=== PATIENT | male | born 1965 | race Caucasian/White ===

== ENCOUNTER 2017-06-02 19:41 | Emergency (ER) | payer MEDICAID ==
[~2017-06-02] VITALS: Ht 180.3 cm; Wt 77.1 kg
[~2017-06-02 19:41] MED LIST: ASPIR 8181 MG PO; ASPIRIN 325MG325 MG PO; BENADRYL ITCH28.3 GM TP; CATAPRES0.2 MG PO; CIPRO 500MG TA500 MG PO; CIPROFLOXACIN500 MG PO; CLINDAMYCIN HC300 MG PO; CLONIDINE HYDR0.1 MG PO; CLONIDINE0.1 MG PO; Chlordiazepoxid25 MG PO; DIAZEPAM10 M1 PO; ECOTRIN81 MG PO; FIORICET1 CAP PO; FLAGYL 500MG.500 MG PO; FLAGYL500 MG PO; HABITROL21 MG/24 H TD; LISINOPRIL 10MG10 MG PO; LISINOPRIL/HCTZ1 TA3 PO; METOPROLOL25 MG PO; TRIAMCINOLON 0.80 G2 TP; VICODIN 5/500 T1 TAB PO
--- NOTE | 2017-06-02 20:14 | Emergency Room Report ---
History of Present Illness Time Seen by 2012 Presenting Problem in Triage Pt arrived:Walked Presenting Problem:PATIENT REPORTS HIS NOSE STARTED BLEEDING AT 0400 THIS MORNING AND IT HASN'T STOPPED. PATIENT HAS A TISSUE PLACED IN RIGHT NARE. 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 N Clinical Suspician of Infection? N Mental Status: 1 - Regular (Normal Baseline) Sepsis Risk:Low Sepsis Risk Have you (or family members/close friends) recently traveled outside the [place]? N If Yes, where/when: Have you had exposure to infectious disease within the past month? TB? Other? Specify: Source patient, RN notes reviewed, old records Exam Limitations no limitations Comment has sinus congestion and dev rt nosebleed which would not resp to otc meds and home care Cardiac Chest Pain Chest pain indicative of cardiac No Timing/Duration this evening Severity moderate ALLERGIES Coded Allergies: iodine (Intermediate, I-RASH 10/09/15) promethazine (From PHENERGAN) (Mild, NA-HALLUCINATIONS 10/09/15) Home Medications Reported Medications LISINOPRIL (Lisinopril) 10 MG PO DAILY Aspirin (Aspirin EC 81MG Tab) 81 MG PO DAILY History Medical History General CAD? No Angina: No VA: No Hypertension? Yes Hyperlipidemia? No CHF? No DVT? No PE? No COPD? No Asthma? No Anemia? No GERD? No Gastric ulcers? No GI Bleed? No Hernia? No Thyroid Problems? No Hypothyroidism? No CVA? Yes Seizures? No Diabetes? No Renal Insuffiency? Yes End Stage Renal Disease? No UTI? No Stones? No BPH? No GB Disease: No Nephritic Syndrome? No Asplenia? No Hepatitis? No Sickle Cell Disease? No Arthritis? No Migraines? No Cataracts? No Glaucoma? No MRSA? No HIV? No TB? No Anxiety? No Depression? No Cancer? No More? Yes Additional hx: ETOH and tobacco abuse - 3 MONTHS AGO Was told he had Stage 3 kidney disease Immunization Hx DT/Tetanus > 10 Years Ago Flu [id number] Pneumonia Refuses Surgical Hx Previous Surgery?N Family History Family Hx Diabetes No CAD No Hypertension Yes Hyperlipidemia Yes Cancer Yes TB No Social History Smoking Hx Smoker: Current Every Day Smoker Tobacco: Yes Type Cigarettes Packs/day 1 1/2 - 2 Packs Alcohol Alcohol: Yes Drugs none Review of Systems All Other Systems Reviewed and Negative Constitutional denies fever Eyes denies drainage ENT see HPI, epistaxis. denies: ear pain, throat pain. Respiratory denies cough, denies shortness of breath, denies wheezing Cardiovascular denies chest pain, denies palpitations, denies syncope Gastrointestinal denies abdominal pain, denies diarrhea, denies vomiting Genitourinary denies: dysuria, frequency, hesitancy, hematuria. Musculoskeletal denies back pain, denies joint pain, denies joint swelling, denies neck pain Skin denies rash Psychiatric/Neurological denies headache, denies seizure Physical Exam Vital Signs Vital Signs Date Time Temp Pulse Resp B/P Pulse O2 O2 Flow FiO2 Ox Delivery Rate 06/02 2025 98.4 94 20 140/98 99 06/02 2017 20 06/02 2001 134 102/50 06/02 2000 102 121/84 06/02 1959 106 114/75 06/02 1943 98.4 73 20 136/99 99 - WBC >12,000 or <4,000 or 10% bands? 2 or more SIRS Criteria Met? B/P:118/64 MAP:111 Creatinine >2.0? UA output<0.5ml/kg/hr for 2 hrs? Platelet count >100,000? Lactate >2.0mmol/1? INR >1.2 or PTT > than 60 sec? Evidence of Organ Dysfunction? Provider documented clinical suspician of infection? N Sepsis Criteria Count: 1 Sepsis Risk: Low Sepsis Risk General Appearance no apparent distress Eye Exam - bilateral eye PERRL, bilateral eye EOMI Ear, Nose, Throat ozzing rt nares - no septal hematoma Neck non-tender Respiratory Status No: respiratory distress. 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 No Results/Orders Current Medication Orders Sig/Dana Start time Last Medication Dose Route Stop Time Status Admin Acetaminophen/ 1 ANTONINA ONCE ONE 06/02 2045 AC Codeine Phosphate PO 06/02 2046 Cephalexin 500 MG ONCE ONE 06/02 2045 AC Monohydrate PO 06/02 2046 Ketorolac 0 .STK-MED ONE 06/02 2016 DC Tromethamine .ROUTE Cocaine HCl 4 ML ONCE ONE 06/02 2015 DC 08/06 TP 06/02 Ketorolac 30 MG ONCE ONE 06/02 2015 DC 06 Tromethamine IV 06/02 Methylprednisolone 125 MG ONCE ONE 06/02 2015 DC 06/02 Sodium Succinate IV 06/02 Sodium Chloride 1,000 ML .Q1H1M 06/02 2015 AC 08/ IV 06/02 Sodium Chloride 10 ML PRN PRN 06/02 2015 AC IV 06/03 2005 Methylprednisolone 0 .STK-MED ONE 06/02 2012 DC Sodium Succinate .ROUTE Cocaine HCl 0 .STK-MED ONE 06/02 2008 DC .ROUTE Sodium Chloride 1,000 ML .STK-MED ONE 06/02 2004 DC IV Phenylephrine HCl 0.5 ML ONCE ONE 06/02 2000 DC 06/02 NS 06/02 Sodium Chloride 10 ML PRN PRN 06/02 2000 AC 06/02 IV 06/03 Phenylephrine HCl 0 .STK-MED ONE 06/02 1956 DC .ROUTE Orders Procedure Date/time Status ORTHOSTATIC B/P 06/02 1958 Active IV SALINE LOCK 06/02 1956 Active PROTHROMBIN TIME 06/02 1956 Active CBC WITH AUTO DIFF 06/02 1956 Active CHEM 12 PROFILE 06/02 1956 Active Procedures Epistaxis Epistaxis care Type/contributing factors Present: Anterior bleed, Takes ASA. No: Posterior bleed, Uncontrolled HTN, Takes Plavix, Takes Coumadin. Medications used Neosynephrine, Cocaine. Treatment/care Anterior pack placed. Departure Departure Time of Disposition 2036 Disposition DC Home or Self Care(routine) Clinical Impression Primary Impression: Anterior epistaxis Condition STABLE Referrals Abhijit Castro MD Patient Instructions DI for Nosebleed Additional Instructions see dr castro for follow up Discharge Counseling Counseled pt/family regarding diagnosis, test results, medications/RX, follow up needs Prescriptions Current Visit Scripts CEPHALEXIN (Keflex 500MG Capsule) 500 MG PO Q8H #21 CAP ED Critical Care Critical Care No at [id number]
[2017-06-02] MEDS ORDERED: KEFLEX 500MG.500 MG PO (20:43)
[2017-06-02 20:51] LABS: HEMOGLOBIN 13.1 g/dL (14.1-18.0); LYMPH % 24.2 % (10-50)
[2017-06-02 20:57] VITALS: BP 140/98
--- OUTSIDE RECORDS SUMMARY | 2017-06-03 20:18 | External Medical Summary Rpt ---
Author Author , ESVIN MCALLISTER Address Unknown Phone [email or web address] Care Team Providers Care [employer] Access[employer] Estimator Name Role Phone JAYLON ESTEFANIA, JAYLON Unavailable Unavailable ESTEFANIA JAYLON ESTEFANIA, ARNOLD Unavailable Unavailable ESTEFANIA SPICER HARLEY, Unavailable Unavailable SPICER HARLEY [facility] Unavailable Unavailable ADULT & PED, [facility] Unavailable [facility]available [facility], Unavailable Unavailable [facility] Unavailable [place], [facility] Unavailable Unavailable [facility], [facility] JOSEPHINE HENRIK, Unavailable Unavailable JOSEPHINE HENRIK SUZANNE DEBRA, SUZANNE Unavailable Unavailable DEBRA [facility] Un[facility] Un[facility], [facility] Unavailable Unavailable CH[facility]OP[facility]CT, [facility], Unavailable [facility]available [facility], Unavailable Unavailable [facility] BURNS TRA, [facility] TRA Unavailable Unavailable Dar Shields MD, Unavailable Unavailable Dar Shields MD [facility] Unavailable Unavailable [facility], [facility] KHAWARI MAR, KHAWARI Unavailable Unavailable MAR KOSTELIC PETERSON, Unavailable Unavailable KOSTELIC [facility]ERSON [facility] Un[facility], [facility] Unavailable Unavailable [facility], [facility] Unavailable Unavailable [facility], [facility] Unavailable [facility], [facility] Ludmila Yeung MD, Unavailable Unavailable Ludmila BRAMBILA, Unavailable Unavailable DEEPAK BRAMBILA, Unavailable Unavailable DEEPAK BRAMBILA [facility], Unavailable Unavailable [facility], Unavailable Unavailable [facility], Unavailable Unavailable PLL[facility], [facility] CLEMENTS, CLEMENTS Unavailable Unavailable CLEMENTS, [facility] Unavailable Unavailable [facility], [facility] Unavailable Unavailable [facility], [facility] Unavailable Unavailable CHANDA TOD, CHANDA TOD Unavailable Unavailable ROSS SAAD, Unavailable Unavailable ROSS SAAD SADEK MOH, SADEK MOH Unavailable Unavailable MONTAÑO, MONTAÑO Unavailable Unavailable MONTAÑO, MONTAÑO Unavailable Unavailable MON[facility]ÑO BABS, [facility] Unavailable Unavailable DAYANA SALAMANCA, DAYANA Unavailable Unavailable [facility], Unavailable Unavailable [facility] Purpose Continuity of Care Document - 08-01-2013 through 2016 Problems Code Diagnosis DOS Provider Status [id number] 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-13-2017 [facility] 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 [id number] CHRONIC 01-22-2017 [facility] MIGRAINE W/O AURA NOT INTRACT W/O SM R1030 LOWER 11-12-2016 [facility] ABDOMINAL PAIN UNSPECIFIED R3919 OTHER 07-09-2016 [facility] WITH INC MICTURITION M5032 OTH CERV 11-03-2015 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 N MID-CERVICA L REGION M5117 INTERVERTEB 11-03-2015 [facility] 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 LS RGN M9901 SEGMENTAL & 11-03-2015 [facility] SOMATIC FAMILY DYSFUNCTION CHIROPRACT CERVICAL REGION M9902 SEGMENTAL & 11-03-2015 [facility] SOMATIC FAMILY DYSFUNCTION [facility] THORACIC REGION M9903 SEGMENTAL & 11-03-2015 [facility] SOMATIC FAMILY DYSFUNCTION CHIROPRACT OF LUMBAR REGION M9904 SEGMENTAL & 11-03-2015 [facility] SOMATIC FAMILY DYSFUNCTION CHIROPRACT OF SACRAL REGION M9985 OTHER 11-03-2015 [facility] BIOMECHANIC FAMILY AL LESIONS CHIROPRACT OF PELVIC REGION L309 DERMATITIS 10-17-2015 [facility] PAD UNSPECIFIED [id number] CUTANEOUS 10-10-2015 [facility] ABSCESS OF PHYSICIANS LEFT UPPER GROUP LIMB B86 SCABIES 10-09-2015 [facility] B45597 CUTANEOUS 10-09-2015 [facility] ABSCESS OF PHYSICIANS, LEFT LOWER PLLC LIMB [id number] CELLULITIS 10-09-2015 [facility] OF LEFT PHYSICIANS, UPPER LIMB PLLC [id number] CELLULITIS 10-09-2015 [facility] OF LEFT PHYSICIANS, LOWER LIMB PLLC 5982 POSTOPERATI 06-01-2015 [facility] 09688 INCOMPLETE 06-01-2015 [facility] BLADDER [place] [facility] 58088 URETHRAL 05-04-2015 [facility] STRICTURE [place] DUE TO ADULT & PED UNSPECIFIED INFECTION 73957 OTHER 05-04-2015 [facility] SPECIFIED [place] DISORDER OF ADULT & PED PENIS 99661 NOCTURIA 04-27-2015 [facility] [place] [facility] 79913 CHRONIC 04-07-2015 [facility] MIGRAINE NEUROLOGY W/O AURA W/O INTRACTABLE W/O SM 7242 LUMBAGO 04-07-2015 [facility] 16681 MEMORY LOSS 04-07-2015 [facility] 7840 HEADACHE 03-24-2015 [facility] 2689 UNSPECIFIED 02-18-2015 [facility] V5869 LONG-TERM 12-27-2014 [facility] USE OF [place] OTHER MEDICATIONS 4619 ACUTE 11-26-2014 JAYLON MAC SINUSITIS, UNSPECIFIED 4660 ACUTE 11-26-2014 ARNORI ESTEFANIA BRONCHITIS 36460 DEGEN 08-19-2014 [facility] LUMBAR/LUMB ORTHOPAEDIC OSACRAL S PLC INTERVERTEB RAL DISC 64671 SPINAL STEN 07-15-2014 [facility] LUMB REG ORTHOPAEDIC W/O S PLC NEUROGENIC CLAUDICATIO N 7213 LUMBOSACRAL 06-25-2014 [facility] WITHOUT MYELOPATHY 41601 DISPLCMT 06-25-2014 [place] LUMBAR MEDICAL INTERVERT IMAGING ASS DISC W/O MYELOPATHY 3384 CHRONIC 06-21-2014 JAYLON MAC PAIN SYNDROME 17137 OSTEOARTHRO 06-21-2014 JAYLON MAC S INVLV MX SITES BUT NOT SPEC GEN 64428 HTN CKD UNS 06-09-2014 [facility] STAGE I THRU STAGE IV/UNS 01051 DIVERTICULO 06-09-2014 [facility] COLON 5853 CHRONIC 06-09-2014 [facility] DISEASE STAGE III (MODERATE) 26695 CONTRACTURE 06-09-2014 [facility] 58939 CALCANEAL 06-09-2014 [facility] 7286 CONTRACTURE 06-09-2014 [facility] FASCIA 3670 HYPERMETROP 05-20-2014 [facility]EE[facility]K PAREDES GRE 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 [place] [facility]IS FOOT [facility] ANKLE CE 7224 DEGENERATIO 05-14-2014 [facility] N 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 80814 PLANTAR 05-14-2014 [place] FASCIAL FOOT & FIBROMATOSI ANKLE CE S 7295 PAIN IN 05-14-2014 [place] SOFT FOOT & TISSUES OF ANKLE CE LIMB 7391 NONALLOPATH 05-14-2014 [facility] IC LESION FAMILY OF CERVICAL CHIROPRACT REGION NEC 7392 NONALLOPATH 05-14-2014 [facility] IC LESION FAMILY OF THORACIC CHIROPRACT REGION NEC 7393 NONALLOPATH 05-14-2014 [facility] IC LESION FAMILY OF LUMBAR CHIROPRACT REGION NEC 7394 NONALLOPATH 05-14-2014 [facility] IC LESION FAMILY OF SACRAL CHIROPRACT REGION NEC V0179 CONTACT OR 05-11-2014 LAB [facility] EXPOSURE TO BHARATI OTHER HOLDINGS VIRAL DISEASES 4011 ESSENTIAL 04-08-2014 JAYLON MAC HYPERTENS N, BENIGN 7245 UNSPECIFIED 04-08-2014 JAYLON MAC BACKACHE 18756 UNSPECIFIED 04-08-2014 JAYLON MAC GANGLION 305.1 305.1 11-09-2013 Glennie TOBACCO USE [facility] 401.9 401.9 11-09-2013 Glennie HYPERTENSIO [facility] [address] OTHER 11-09-2013 [place] DISEASES OF MEDICAL LUNG NOT IMAGING ASS ELSEWHERE CLASSIFIED 562.11 562.11 11-09-2013 Glennie DIVERTICULI [facility] (W/O MENT OF HEMORRHAGE) 7862 COUGH 11-09-2013 [facility] 300.00 300.00 08-04-2013 Glennie ANXIETY [facility] 724.2 724.2 08-04-2013 Glennie LUMBAGO [facility] R04.0 EPISTAXIS Allergies, Adverse Reactions, Alerts Type Drug Allergy Adverse Reaction to Substance Substance Reaction Severity Promethazine NA-HALLUCINATIONS Mild Iodine Unknown Unknown Medications Na ND Rx Da Fi Fi Am Da Di Ph RX Ph St me C No te ll ll ou ys ag ar # ys at rm s nt no ma ic us Or Da si cy ia de te s n re d BU 51 03 04 30 8 00 WA Ac TA 86 -2 -2 .0 00 L- ti LB 20 8- 1- 00 04 MA ve -A 54 20 20 54 RT CE 00 17 17 22 TA 1 96 PH MD AR N- MA CA CY FF #5 50 71 -3 25 -4 0 SO 00 01 0 No DI 40 -1 UM 97 3- Lo 98 20 ng CH 30 14 er LO 9 RI Ac DE ti ve 0. 9% SO CRISTINA TI ON ON 00 01 0 No DA 64 -1 NS 16 3- Lo ET 08 20 ng RO 02 14 er N 5 HC Ac L ti 4 ve MG /2 ML AL Sa 63 01 0 No li 80 -1 ne 70 3- Lo 10 20 ng Fl 07 14 er us 5 h Ac 10 ti ML ve Sy ri ng e Mo 00 01 0 No rp 40 -1 hi 91 3- Lo ne 25 20 ng 83 14 er 4M 0 G/ Ac Ml ti ve Sy ri ng e Le 00 01 0 No vo 90 -1 fl 46 3- Lo ox 25 20 ng ac 06 14 er in 1 Ac 50 ti 0M ve G Ta bl et KE 00 01 0 No TO 40 -1 RO 93 3- Lo LA 79 20 ng C 50 14 er 30 1 Ac MG ti /M ve L AL AC 51 01 0 No ET 07 -1 AM 90 3- Lo IN 16 20 ng OP 19 14 er HE 9H N Ac W/ ti CO ve DE IN E #3 TA K ME 00 01 0 No TR 40 -1 ON 97 3- Lo ID 81 20 ng AZ 12 14 er OL 4 E Ac 50 ti 0 ve MG /1 00 ML NI 00 10 2 No CO 06 -0 TI 75 6- Lo NE 12 20 ng 61 13 er 21 4 Ac MG ti /2 ve 4H R PA TC H CL 51 10 2 No ON 07 -0 ID 90 6- Lo IN 30 20 ng E 02 13 er HC 0 L Ac 0. ti 2 ve MG TA BL ET KE 00 10 2 No TO 40 -0 RO 93 6- Lo LA 79 20 ng C 50 13 er 30 1 Ac MG ti /M ve L AL DI 51 10 2 No AZ 07 -0 EP 90 6- Lo AM 28 20 ng 62 13 er 10 0 Ac MG ti ve TA BL ET IN 00 10 2 No VA 00 -0 NZ 63 6- Lo 1 84 20 ng 57 13 er GM 1 Ac AD ti D- ve VA NT AG E AL SO 00 10 2 No DI 40 -0 UM 97 6- Lo 10 20 ng CH 16 13 er LO 6 RI Ac DE ti ve 0. 9% SO LN IN 00 10 0 No VA 00 -0 NZ 63 5- Lo 1 84 20 ng 57 13 er GM 1 Ac AD ti D- ve VA NT AG E AL SO 00 10 0 No DI 40 -0 UM 97 5- Lo 10 20 ng CH 16 13 er LO 6 RI Ac DE ti ve 0. 9% SO LN Sa 63 10 3 No li 80 -0 ne 70 5- Lo 10 20 ng Fl 07 13 er us 5 h Ac 10 ti ML ve Sy ri ng e ON 00 10 0 No DA 64 -0 NS 16 5- Lo ET 08 20 ng RO 02 13 er N 5 HC Ac L ti 4 ve MG /2 ML AL Mo 00 10 0 No rp 40 -0 hi 91 5- Lo ne 25 20 ng 83 13 er 4M 0 G/ Ac Ml ti ve Sy ri ng e Mo 00 10 3 No rp 40 -0 hi 91 5- Lo ne 25 20 ng 83 13 er 4M 0 G/ Ac Ml ti ve Sy ri ng e Vital Signs 11-09-2013 22:45 Name Value Interpretat Reference Comment ion Range BP 72 mm[Hg] Diastolic BP Systolic 126 mm[Hg] Heart 76 /min Rate/Pulse O2% 95 % Respiratory 16 /min Rate 11-09-2013 19:15 Name Value Interpretat Reference Comment ion Range Body 98 [degF] Temperature BP 99 mm[Hg] Diastolic BP Systolic 159 mm[Hg] Heart 50 /min Rate/Pulse O2% 100 % Respiratory 21 /min Rate 08-04-2013 11:45 Name Value Interpretat Reference Comment ion Range Body 98.7 [degF] Temperature BP 93 mm[Hg] Diastolic BP Systolic 148 mm[Hg] Heart 75 /min Rate/Pulse Respiratory 20 /min Rate 08-04-2013 08:05 Name Value Interpretat Reference Comment ion Range O2% 94 % 08-01-2013 22:30 Name Value Interpretat Reference Comment ion Range Height 180.34 cm Weight 96.730 kg Measured 08-01-2013 19:22 Name Value Interpretat Reference Comment ion Range Body 98.0 [degF] Temperature BP 87 mm[Hg] Diastolic BP Systolic 132 mm[Hg] Heart 81 /min Rate/Pulse O2% 96 % Respiratory 19 /min Rate Weight 0 [oz_av] Measured Results Labs Lab Lab Date Result Refere Interp Status Commen Order Detail nces retati t Range on COMPREHENSIVE METABOLIC PANEL (11-09-2013 19:15) Glucose 154 74-106 complet 014 mg/dL ed Bld-mCn 19:15 c BUN 15 7-18 complet Bld-mCn 014 mg/dL ed c 19:15 Creat 0.9 0.8-1.3 complet SerPl-m 014 mg/dL ed Cnc 19:15 Creat 151 50-200 complet Cl 014 ML/MIN ed predict 19:15 ed SerPl C-G-vRa te GFR/BSA 91 Greater complet .pred 014 ML/MIN than ed SerPl 19:15 60 Schwart z-vRate Sodium 138 136-145 complet SerPl-s 014 mmoL/L ed Cnc 19:15 Potassi 3.8 3.5-5.1 complet um 014 mmoL/L ed SerPl-s 19:15 Cnc Chlorid 100 98-107 complet e 014 mmoL/L ed SerPl-s 19:15 Cnc CO2 30 21.0-32 complet SerPl-s 014 mmoL/L .0 ed Cnc 19:15 Calcium 8.7 8.5-10. complet 014 mg/dL 1 ed SerPl-m 19:15 Cnc Prot 7.9 6.4-8.2 complet SerPl-m 014 gm/dL ed Cnc 19:15 Albumin 4.0 3.4-5.0 complet 014 gm/dL ed SerPl-m 19:15 Cnc Globuli 3.9 1.3-3.2 complet n 014 gm/dL ed Ser-mCn 19:15 c Albumin 1.0 UNK 1.1-1.8 complet /Glob 014 ed SerPl-m 19:15 Rto Bilirub 0.4 0.2-1.0 complet 014 mg/dL ed SerPl-m 19:15 Cnc AST 21 U/L 15-37 complet SerPl-c 014 ed Cnc 19:15 ALT 39 U/L 30-65 complet SerPl-c 014 ed Cnc 19:15 ALP 104 U/L 50-136 complet SerPl-c 014 ed Cnc 19:15 Amylase SerPl-cCnc (11-09-2013 19:15) Amylase 49 U/L 25-115 complet 014 ed SerPl-c 19:15 Cnc LIPASE (11-09-2013 19:15) LIPASE 120 U/L 73-393 complet 014 ed 19:15 CBC with AUTO DIFF (11-09-2013 19:15) WBC # 11-09- 6.2 4.8-10. complet Bld 014 K/MM3 8 ed Auto 19:15 RBC # 11-09- 5.22 4.6-6.2 complet Bld 014 M/mm3 ed Auto 19:15 Hgb 15.5 14.1-18 complet Bld-mCn 014 g/dL .0 ed c 19:15 Hct Fr 45.5 % 42.0-52 complet Bld 014 .0 ed 19:15 MCV RBC 87.1 fl 82.2-97 complet 014 .8 ed 19:15 MCH RBC 29.6 pg 27-31.2 complet Qn 014 ed Auto 19:15 MEAN 34.0 31.8-35 complet CORPUSC 014 g/dl .4 ed ULAR 19:15 HGB CONC RDW RBC 15.9 % 11.5-17 complet Auto 014 .5 ed 19:15 Platele 229 142-424 complet t Bld 014 K/mm3 ed Ql 19:15 Manual MEAN 8.8 fl 7.4-10. complet PLATELE 014 4 ed T 19:15 VOLUME Granulo 78.7 % 37.0-80 complet cytes 014 .0 ed Fr Bld 19:15 Auto LYMPH % 16.5 % 10-50 complet 014 ed 19:15 Monocyt 4.5 % 1.7-9.3 complet es Fr 014 ed Bld 19:15 Auto Eosinop 0.1 % 0.1-12. complet hil Fr 014 0 ed Bld 19:15 Auto Basophi 0.1 % 0.1-2.0 complet ls Fr 014 ed Bld 19:15 Auto Granulo 01-13-2 4.8 1.3-8.0 complet cytes # 014 K/mm3 ed Bld 19:15 Auto Lymphoc 1.0 0.7-4.5 complet ytes Fr 014 K/mm3 ed Bld 19:15 Auto Monocyt 2 0.3 0.1-1.0 complet es # 014 K/mm3 ed Bld 19:15 Auto Eosinop 0.0 0.0-0.4 complet hil # 014 K/mm3 ed Bld 19:15 Auto Basophi 0.0 0-0.2 complet ls # 014 K/MM3 ed Bld 19:15 Auto BASIC METABOLIC PANEL (08-03-2013 06:21) Glucose 94 74-106 complet 013 mg/dL ed Bld-mCn 06:21 c BUN 8 mg/dL 7-18 complet Bld-mCn 013 ed c 06:21 Creat 1.0 0.8-1.3 complet SerPl-m 013 mg/dL ed Cnc 06:21 ESTIMAT 128 50-200 complet ED 013 ML/MIN ed CREATIN 06:21 INE CLEARAN CE GFR 81 Greater complet (ESTIMA 013 ML/MIN than ed STUART) 06:21 60 Sodium 138 136-145 complet SerPl-s 013 mmoL/L ed Cnc 06:21 Potassi 4.0 3.5-5.1 complet um 013 mmoL/L ed SerPl-s 06:21 Cnc Chlorid 104 98-107 complet e 013 mmoL/L ed SerPl-s 06:21 Cnc CO2 24 21.0-32 complet SerPl-s 013 mmoL/L .0 ed Cnc 06:21 Calcium 7.4 8.5-10. complet 013 mg/dL 1 ed SerPl-m 06:21 Cnc CBC with AUTO DIFF (08-03-2013 06:21) WBC # -07-2 11.8 4.8-10. complet Bld 013 K/MM3 8 ed Auto 06:21 RBC # 07-2 4.24 4.6-6.2 complet Bld 013 M/mm3 ed Auto 06:21 Hgb 10-07-2 12.9 14.1-18 complet Bld-mCn 013 g/dL .0 ed c 06:21 Hct Fr 41.5 % 42.0-52 complet Bld 013 .0 ed 06:21 MCV RBC 97.8 fl 82.2-97 complet 013 .8 ed 06:21 MCH RBC 30.3 pg 27-31.2 complet Qn 013 ed Auto 06:21 MEAN 31.0 31.8-35 complet CORPUSC 013 g/dl .4 ed ULAR 06:21 HGB CONC RDW RBC 14.2 % 11.5-17 complet Auto 013 .5 ed 06:21 Platele 177 142-424 complet t Bld 013 K/mm3 ed Ql 06:21 Manual MEAN 9.4 fl 7.4-10. complet PLATELE 013 4 ed T 06:21 VOLUME Granulo 08-03-2 86.0 % 37.0-80 complet cytes 013 .0 ed Fr Bld 06:21 Auto LYMPH % 07-2 9.1 % 10-50 complet 013 ed 06:21 Monocyt 07-2 4.4 % 1.7-9.3 complet es Fr 013 ed Bld 06:21 Auto Eosinop 07-2 0.3 % 0.1-12. complet hil Fr 013 0 ed Bld 06:21 Auto Basophi -07-2 0.1 % 0.1-2.0 complet ls Fr 013 ed Bld 06:21 Auto Granulo -07-2 10.2 1.3-8.0 complet cytes # 013 K/mm3 ed Bld 06:21 Auto Lymphoc 10-07-2 1.1 0.7-4.5 complet ytes Fr 013 K/mm3 ed Bld 06:21 Auto Monocyt 10-07-2 0.5 0.1-1.0 complet es # 013 K/mm3 ed Bld 06:21 Auto Eosinop 10-07-2 0.0 0.0-0.4 complet hil # 013 K/mm3 ed Bld 06:21 Auto Basophi 07-2 0.0 0-0.2 complet ls # 013 K/MM3 ed Bld 06:21 Auto BASIC METABOLIC PANEL (08-02-2013 06:15) Glucose 108 74-106 complet 013 mg/dL ed Bld-mCn 06:15 c BUN 11 7-18 complet Bld-mCn 013 mg/dL ed c 06:15 Creat 1.2 0.8-1.3 complet SerPl-m 013 mg/dL ed Cnc 06:15 ESTIMAT 106 50-200 complet ED 013 ML/MIN ed CREATIN 06:15 INE CLEARAN CE GFR 65 Greater complet (ESTIMA 013 ML/MIN than ed STUART) 06:15 60 Sodium 138 136-145 complet SerPl-s 013 mmoL/L ed Cnc 06:15 Potassi 4.5 3.5-5.1 complet um 013 mmoL/L ed SerPl-s 06:15 Cnc Chlorid 104 98-107 complet e 013 mmoL/L ed SerPl-s 06:15 Cnc CO2 28 21.0-32 complet SerPl-s 013 mmoL/L .0 ed Cnc 06:15 Calcium 7.4 8.5-10. complet 013 mg/dL 1 ed SerPl-m 06:15 Cnc CBC with AUTO DIFF (08-02-2013 06:15) WBC # 08-02- 12.7 4.8-10. complet Bld 013 K/MM3 8 ed Auto 06:15 RBC # 08-02-2 4.37 4.6-6.2 complet Bld 013 M/mm3 ed Auto 06:15 Hgb 13.6 14.1-18 complet Bld-mCn 013 g/dL .0 ed c 06:15 Hct Fr 41.9 % 42.0-52 complet Bld 013 .0 ed 06:15 MCV RBC 96.0 fl 82.2-97 complet 013 .8 ed 06:15 MCH RBC 31.2 pg 27-31.2 complet Qn 013 ed Auto 06:15 MEAN 32.5 31.8-35 complet CORPUSC 013 g/dl .4 ed ULAR 06:15 HGB CONC RDW RBC 08-02-2 14.7 % 11.5-17 complet Auto 013 .5 ed 06:15 Platele 10-2 212 142-424 complet t Bld 013 K/mm3 ed Ql 06:15 Manual MEAN 06-2 9.1 fl 7.4-10. complet PLATELE 013 4 ed T 06:15 VOLUME Granulo 08-02-2 83.1 % 37.0-80 complet cytes 013 .0 ed Fr Bld 06:15 Auto LYMPH % 08-02-2 12.0 % 10-50 complet 013 ed 06:15 Monocyt 08-02-2 4.7 % 1.7-9.3 complet es Fr 013 ed Bld 06:15 Auto Eosinop 06-2 0.1 % 0.1-12. complet hil Fr 013 0 ed Bld 06:15 Auto Basophi 08-02-2 0.1 % 0.1-2.0 complet ls Fr 013 ed Bld 06:15 Auto Granulo 2 10.6 1.3-8.0 complet cytes # 013 K/mm3 ed Bld 06:15 Auto Lymphoc 08-02-2 1.5 0.7-4.5 complet ytes Fr 013 K/mm3 ed Bld 06:15 Auto Monocyt 06-2 0.6 0.1-1.0 complet es # 013 K/mm3 ed Bld 06:15 Auto Eosinop 06-2 0.0 0.0-0.4 complet hil # 013 K/mm3 ed Bld 06:15 Auto Basophi 06-2 0.0 0-0.2 complet ls # 013 K/MM3 ed Bld 06:15 Auto URINALYSIS/COMPLETE (08-01-2013 22:10) URINE 08-01- YELLOW YELLOW complet COLOR 013 ed 22:10 URINE CLEAR CLEAR complet APPEARA 013 ed NCE 22:10 URINE NEGATIV NEG complet GLUCOSE 013 E ed - 22:10 DIPSTIC K URINE NEGATIV NEG complet BILIRUB 013 E ed IN - 22:10 DIPSTIC K URINE 2+ NEG complet KETONE 013 mg/dL ed 22:10 URINE 08-01-2 1.025 1.005-1 complet SPECIFI 013 UNK .030 ed C 22:10 GRAVITY URINE TRACE-I NEG complet BLOOD 013 NTACT ed 22:10 URINE 5.5 UNK 5.0-8.5 complet PH 013 ed 22:10 URINE NEGATIV NEG complet PROTEIN 013 E mg/dL ed - 22:10 DIPSTIC K URINE 0.2 NEG complet UROBILI 013 E.U./dL ed NOGEN - 22:10 DIPSTIC K URINE NEGATIV NEG complet NITRATE 013 E ed - 22:10 DIPSTIC K URINE NEGATIV NEG complet LEUK 013 E ed ESTERAS 22:10 E URINE 3-5 0 complet RBC 013 rbc/hpf ed 22:10 URINE 3-5 O complet WBC 013 wbc/hpf ed 22:10 URINE OCC OCC complet SQUAMOU 013 #/hpf ed S CELLS 22:10 URINE 3-5 NONE complet HYALINE 013 #/lpf ed CAST 22:10 URINE 1+ NONE complet MUCUS 013 ed 22:10 COMPREHENSIVE METABOLIC PANEL (08-01-2013 19:40) Glucose 122 74-106 complet 013 mg/dL ed Bld-mCn 19:40 c BUN 16 7-18 complet Bld-mCn 013 mg/dL ed c 19:40 Creat 1.1 0.8-1.3 complet SerPl-m 013 mg/dL ed Cnc 19:40 ESTIMAT 129 50-200 complet ED 013 ML/MIN ed CREATIN 19:40 INE CLEARAN CE GFR 72 Greater complet (ESTIMA 013 ML/MIN than ed STUART) 19:40 60 Sodium 137 136-145 complet SerPl-s 013 mmoL/L ed Cnc 19:40 Potassi 4.3 3.5-5.1 complet um 013 mmoL/L ed SerPl-s 19:40 Cnc Chlorid 100 98-107 complet e 013 mmoL/L ed SerPl-s 19:40 Cnc CO2 10-05-2 23 21.0-32 complet SerPl-s 013 mmoL/L .0 ed Cnc 19:40 Calcium 10-05-2 8.8 8.5-10. complet 013 mg/dL 1 ed SerPl-m 19:40 Cnc Prot 10-05-2 8.0 6.4-8.2 complet SerPl-m 013 gm/dL ed Cnc 19:40 Albumin 10-05-2 4.7 3.4-5.0 complet 013 gm/dL ed SerPl-m 19:40 Cnc Globuli 10-05-2 3.3 1.3-3.2 complet n 013 gm/dL ed Ser-mCn 19:40 c Albumin 05-2 1.4 UNK 1.1-1.8 complet /Glob 013 ed SerPl-m 19:40 Rto Bilirub 05-2 0.8 0.2-1.0 complet 013 mg/dL ed SerPl-m 19:40 Cnc AST 1005-2 18 U/L 15-37 complet SerPl-c 013 ed Cnc 19:40 ALT 05-2 38 U/L 30-65 complet SerPl-c 013 ed Cnc 19:40 ALP 05-2 77 U/L 50-136 complet SerPl-c 013 ed Cnc 19:40 Amylase SerPl-cCnc (08-01-2013 19:40) Amylase 1005-2 54 U/L 25-115 complet 013 ed SerPl-c 19:40 Cnc LIPASE (08-01-2013 19:40) LIPASE 05-2 107 U/L 73-393 complet 013 ed 19:40 CBC with AUTO DIFF (08-01-2013 19:40) WBC # 10-05-2 18.4 4.8-10. complet Bld 013 K/MM3 8 ed Auto 19:40 RBC # 10-05-2 5.37 4.6-6.2 complet Bld 013 M/mm3 ed Auto 19:40 Hgb 10-05-2 17.0 14.1-18 complet Bld-mCn 013 g/dL .0 ed c 19:40 Hct Fr 05-2 50.6 % 42.0-52 complet Bld 013 .0 ed 19:40 MCV RBC 10-05-2 94.3 fl 82.2-97 complet 013 .8 ed 19:40 MCH RBC 10-05-2 31.7 pg 27-31.2 complet Qn 013 ed Auto 19:40 MEAN 10-05-2 33.6 31.8-35 complet CORPUSC 013 g/dl .4 ed ULAR 19:40 HGB CONC RDW RBC 10-05-2 14.6 % 11.5-17 complet Auto 013 .5 ed 19:40 Platele 10-05-2 269 142-424 complet t Bld 013 K/mm3 ed Ql 19:40 Manual MEAN 10-05-2 9.0 fl 7.4-10. complet PLATELE 013 4 ed T 19:40 VOLUME Granulo 10-05-2 90.7 % 37.0-80 complet cytes 013 .0 ed Fr Bld 19:40 Auto LYMPH % 10-05-2 3.8 % 10-50 complet 013 ed 19:40 Monocyt 10-05-2 5.1 % 1.7-9.3 complet es Fr 013 ed Bld 19:40 Auto Eosinop 10-05-2 0.3 % 0.1-12. complet hil Fr 013 0 ed Bld 19:40 Auto Basophi 10-05-2 0.1 % 0.1-2.0 complet ls Fr 013 ed Bld 19:40 Auto Granulo 10-05-2 16.7 1.3-8.0 complet cytes # 013 K/mm3 ed Bld 19:40 Auto Lymphoc 10-05-2 0.7 0.7-4.5 complet ytes Fr 013 K/mm3 ed Bld 19:40 Auto Monocyt 10-05-2 0.9 0.1-1.0 complet es # 013 K/mm3 ed Bld 19:40 Auto Eosinop 10-05-2 0.1 0.0-0.4 complet hil # 013 K/mm3 ed Bld 19:40 Auto Basophi 10-05-2 0.0 0-0.2 complet ls # 013 K/MM3 ed Bld 19:40 Auto Procedures Procedure DOS Code Location Performer Comment LUBRICANT A4332 MLK MLK 7 ASSOCIATE ASSOCIATE INDIVIDUA S INC S INC L STERILE PACKET EACH INTERMITT A4352 MLK MLK ENT 7 ASSOCIATE ASSOCIATE URINARY S INC S INC CATHETER; COUDE TIP EACH LUBRICANT A4332 MLK MLK 7 ASSOCIATE ASSOCIATE INDIVIDUA S INC S INC L STERILE PACKET EACH INTERMITT A4352 MLK MLK ENT 7 ASSOCIATE ASSOCIATE URINARY S INC S INC CATHETER; COUDE TIP EACH INTERMITT A4352 MLK MLK ENT 7 ASSOCIATE ASSOCIATE URINARY S INC S INC CATHETER; COUDE TIP EACH LUBRICANT A4332 MLK MLK 7 ASSOCIATE ASSOCIATE INDIVIDUA S INC S INC L STERILE PACKET EACH LUBRICANT A4332 MLK MLK 7 ASSOCIATE ASSOCIATE INDIVIDUA S INC S INC L STERILE PACKET EACH INTERMITT A4352 MLK MLK ENT 7 ASSOCIATE ASSOCIATE URINARY S INC S INC CATHETER; COUDE TIP EACH INTERMITT A4352 MLK MLK ENT 7 ASSOCIATE ASSOCIATE URINARY S INC S INC CATHETER; COUDE TIP EACH LUBRICANT A4332 MLK MLK 7 ASSOCIATE ASSOCIATE INDIVIDUA S INC S INC L STERILE PACKET EACH LUBRICANT A4332 MLK MLK 6 ASSOCIATE ASSOCIATE INDIVIDUA S INC S INC L STERILE PACKET EACH INTERMITT A4352 MLK MLK ENT 6 ASSOCIATE ASSOCIATE URINARY S INC S INC CATHETER; COUDE TIP EACH INTERMITT A4352 MLK MLK ENT 6 ASSOCIATE ASSOCIATE URINARY S INC S INC CATHETER; COUDE TIP EACH LUBRICANT A4332 MLK MLK 6 ASSOCIATE ASSOCIATE INDIVIDUA S INC S INC L STERILE PACKET EACH LUBRICANT A4332 MLK MLK 6 ASSOCIATE ASSOCIATE INDIVIDUA S INC S INC L STERILE PACKET EACH INTERMITT A4352 MLK MLK ENT 6 ASSOCIATE ASSOCIATE URINARY S INC S INC CATHETER; COUDE TIP EACH INTERMITT A4352 MLK MLK ENT 6 ASSOCIATE ASSOCIATE URINARY S INC S INC CATHETER; COUDE TIP EACH LUBRICANT A4332 MLK MLK 6 ASSOCIATE ASSOCIATE INDIVIDUA S INC S INC L STERILE PACKET EACH LUBRICANT A4332 MLK MLK 6 ASSOCIATE ASSOCIATE INDIVIDUA S INC S INC L STERILE PACKET EACH INTERMITT A4352 MLK MLK ENT 6 ASSOCIATE ASSOCIATE URINARY S INC S INC CATHETER; COUDE TIP EACH LUBRICANT A4332 MLK MLK 6 ASSOCIATE ASSOCIATE INDIVIDUA S INC S INC L STERILE PACKET EACH INTERMITT A4352 MLK MLK ENT 6 ASSOCIATE ASSOCIATE URINARY S INC S INC CATHETER; COUDE TIP EACH INTERMITT A4352 MLK MLK ENT 6 ASSOCIATE ASSOCIATE URINARY S INC S INC CATHETER; COUDE TIP EACH LUBRICANT A4332 MLK MLK 6 ASSOCIATE ASSOCIATE INDIVIDUA S INC S INC L STERILE PACKET EACH INTERMITT A4352 MLK MLK ENT 6 ASSOCIATE ASSOCIATE URINARY S INC S INC CATHETER; COUDE TIP EACH LUBRICANT A4332 MLK MLK 6 ASSOCIATE ASSOCIATE INDIVIDUA S INC S INC L STERILE PACKET EACH LUBRICANT A4332 MLK MLK 6 ASSOCIATE ASSOCIATE INDIVIDUA S INC S INC L STERILE PACKET EACH INTERMITT A4352 MLK MLK ENT 6 ASSOCIATE ASSOCIATE URINARY S INC S INC CATHETER; COUDE TIP EACH LUBRICANT A4332 MLK MLK 6 ASSOCIATE ASSOCIATE INDIVIDUA S INC S INC L STERILE PACKET EACH INTERMITT A4352 MLK MLK ENT 6 ASSOCIATE ASSOCIATE URINARY S INC S INC CATHETER; COUDE TIP EACH INTERMITT A4352 MLK MLK ENT 6 ASSOCIATE ASSOCIATE URINARY S INC S INC CATHETER; COUDE TIP EACH LUBRICANT A4332 MLK MLK 6 ASSOCIATE ASSOCIATE INDIVIDUA S INC S INC L STERILE PACKET EACH INTERMITT A4352 MLK MLK ENT 6 ASSOCIATE ASSOCIATE URINARY S INC S INC CATHETER; COUDE TIP EACH LUBRICANT A4332 MLK MLK 6 ASSOCIATE ASSOCIATE INDIVIDUA S INC S INC L STERILE PACKET EACH THERAPEUT 37120 [facility] ANNE IC PX 1/> 6 N FAMILY JADYN AREAS CHIROPRAC EACH 15 T MIN EXERCISES CHIROPRAC 43075 [facility] TIC 6 N FAMILY JADYN MANIPULAT CHIROPRAC KIM TX T SPINAL 3-4 REGIONS APPL 12323 [facility] ANNE MODALITY 6 N FAMILY JADYN 1/> AREAS CHIROPRAC TRACTION T MECHANICA L APPL 70033 [facility] MODALITY 6 N FAMILY JADYN 1/> AREAS CHIROPRAC ELEC T STIMJ UNATTENDE D CHIROPRAC 33995 [facility] DAYANA TIC 6 N FAMILY JADYN MANIPULAT CHIROPRAC KIM TX T SPINAL 3-4 REGIONS INITIAL 82669 [facility] CHANDA TOD INPATIENT 5 PHYSICIAN CONSULT S GROUP NEW/ESTAB PT 40 MIN INTERMITT A4352 MLK MLK ENT 5 ASSOCIATE ASSOCIATE URINARY S INC S INC CATHETER; COUDE TIP EACH LUBRICANT A4332 MLK MLK 5 ASSOCIATE ASSOCIATE INDIVIDUA S INC S INC L STERILE PACKET EACH INCISION 94956 [facility] CHANDA TOD & 5 PHYSICIAN DRAINAGE S GROUP ABSCESS SIMPLE/SI NGLE LUBRICANT A4332 MLK MLK 5 ASSOCIATE ASSOCIATE INDIVIDUA S INC S INC L STERILE PACKET EACH INTERMITT A4352 MLK MLK ENT 5 ASSOCIATE ASSOCIATE URINARY S INC S INC CATHETER; COUDE TIP EACH HOLA 38171 [facility] POST-VOID 5 [place] [facility] ING ADULT & RESIDUAL PED URINE&/BL ADDER CAP HOLA 75074 [facility] POST-VOID 5 [place] ING ADULT & RESIDUAL PED URINE&/BL ADDER CAP CYSTO 03923 [facility] CALIBRATI 5 [place] ON DILAT ADULT & URTL PED STRIX/JB NOSIS COMPLEX 26369 [facility] UROFLOMET 5 [place] RY ADULT & PED HOLA 10651 [facility] POST-VOID 5 [place] ING ADULT & RESIDUAL PED URINE&/BL ADDER CAP ELECTROEN 44158 [facility] CEPHALOGR 5 N AM W/REC NEUROLOGY AWAKE&ASL EEP MRI BRAIN 89101 [facility] [place] KOSTELIC BRAIN 5 RADIOLOGY PETERSON STEM W/O CONTRAST MATERIAL ELECTROEN 51958 [facility] CEPHALOGR 5 N N AM W/REC COMMUNTIY COMMUNTIY AWAKE&[place] [address] [facility] PYRIDOXAL 5 N N COMMUNTIY COMMUNTIY [place] [address] [facility] FOLIC 5 N N ACID COMMUNTIY COMMUNTIY SERUM HOSPITA HOSPITA COMPREHEN 94848 [facility] SIVE 5 N N METABOLIC COMMUNTIY COMMUNTIY PANEL HOSPITA HOSPITA COLLECTIO 80819 [facility] N VENOUS 5 N N BLOOD COMMUNTIY COMMUNTIY VENIPUN[place] [address] [facility] THYROID 5 N N STIMULATI COMMUNTIY COMMUNTIY NG [place] [address] [facility] THIAMINE- 5 N N VITAMIN COMMUNTIY COMMUNTIY B-1 HOSPITA HOSPITA CYANOCOBA 33909 [facility] [place] 5 N N VITAMIN COMMUNTIY COMMUNTIY B-12 HOSPITA HOSPITA 25 98501 [facility] HYDROXY 5 N N INCLUDES COMMUNTIY COMMUNTIY FRACTIONS HOSPITA HOSPITA IF PERFORMED COLLECTIO 58957 [facility] N VENOUS 5 N N BLOOD COMMUNTIY COMMUNTIY VENIPUNCT HOSPITA HOSPITA URE DRUG SCR G0434 COMBINED COMBINED NOT 5 PHYSICIAN PHYSICIAN CHROMATOG S LA S LA RAPHIC; ANY NUMBER PT ENC MRI 86082 [facility] SPINAL 4 MEDICAL [facility] CANAL IMAGING LUMBAR ASS W/O CONTRAST MATERIAL RADEX 21512 [facility] SPINE 4 [place] LUMBOSACR ORTHOPAED AL 2/3 [facility] VIEWS RADEX 29248 [facility] WRIST 2 4 Y Y [facility] COLLECTIO 00349 [facility] UNIVERS N VENOUS 4 Y Y BLOOD [facility] VENIPUNCT URE COMPREHEN 02693 [facility] UN[facility] SIVE 4 Y [facility] PANEL URNLS DIP 51204 [facility] 4 Y Y STICK/TAB [facility] LET RGNT AUTO W/O MICROSCOP Y RADEX 62162 [facility] FOOT 4 Y Y COMPLETE [facility] MINIMUM 3 VIEWS SEDIMENTA 14280 [facility] TION RATE 4 Y Y RBC [facility] AUTOMATED C-REACTIV 09812 [facility] E PROTEIN 4 Y Y HOSPITAL [facility]PITAL CYCLIC 46329 [facility] CITRULLIN 4 Y Y ATED [facility]OSPITAL [place] [address] [facility] HEPATITIS 4 Y Y B HOSPITAL [place] [address] [facility] MAGNESIUM 4 [place] [address] [facility] PHOSPHORU 4 Y Y S HOSPITAL HOSPITAL INORGANIC RADEX 25295 [facility] HAND 2 4 Y Y VIEWS [facility] BLOOD 86566 [facility] COUNT 4 Y Y COMPLETE [facility] AUTO&AUTO DIFRNTL WBC RHEUMATOI 63231 [facility] D FACTOR 4 Y Y QUANTITAT [facility] KIM HEPATITIS 60740 [facility] C 4 Y Y ANTIBODY [facility] OPHTH 21258 [facility] 4 GRE GRE XM&EVAL COMPRHNSV ESTAB PT 1/> RADEX 97646 [facility] SPINE 4 N FAMILY JADYN CERVICAL CHIROPRAC 2 OR 3 T VIEWS RADEX 27745 [facility] SPINE 4 N FAMILY JADYN LUMBOSACR CHIROPRAC AL 2/3 T VIEWS CHIROPRAC 04079 [facility] TIC 4 N FAMILY JADYN MANIPULAT CHIROPRAC KIM TX T SPINAL 3-4 REGIONS THERAPEUT 74505 [facility] IC PX 1/> 4 N FAMILY N FAMILY AREAS CHIROPRAC CHIROPRAC EACH 15 T T MIN EXERCISES APPL 54024 [facility] MODALITY 4 N FAMILY N FAMILY 1/> AREAS CHIROPRAC CHIROPRAC ELEC T T STIMJ UNATTENDE D APPL 28146 [facility] MODALITY 4 N FAMILY JADYN 1/> AREAS CHIROPRAC TRACTION T MECHANICA L HEPATITIS 35755 [facility] LAB ANA LILIA C 4 BHARATI BHARATI ANTIBODY HOLDINGS HOLDINGS RADEX 11310 [facility] HAND 4 [place] MINIMUM 3 ORTHOPAED VIEWS [facility] RADIOLOGI 19227 [facility] [facility] C EXAM 4 MEDICAL [facility] CHEST 2 IMAGING VIEWS ASS FRONTAL&L ATERAL Encounters Encounter Start End Date Code Location Performer Type Date OFFICE 49073 DANYEL MONTAÑO OUTPATIEN 7 7 T VISIT 15 MINUTES OFFICE 87175 [facility] CLEMENTS OUTPATIEN 7 7 T VISIT 15 MINUTES OFFICE 10534 KELV[facility] BRICE OUTPATIEN 6 6 N T VISIT NEUROLOGY 10 MINUTES OFFICE 13978 [facility] ANNE OUTPATIEN 6 6 N FAMILY JADYN T VISIT CHIROPRAC 10 T MINUTES OFFICE 99115 [facility]MENTS PAD OUTPATIEN 5 5 T VISIT 15 MINUTES EMERGENCY 42916 ADELA ZUÑIGA [facility] DEPT 5 5 PHYSICIAN VISIT S, PLLC HIGH SEVERITY& THREAT FUNCJ OFFICE 25922 [facility] OUT[facility]IEN 5 5 [place] [facility] T VISIT ADULT & 15 PED MINUTES OFFICE 83612 [facility] OUT[facility] 5 5 [place] [facility] T VISIT ADULT & 15 PED MINUTES OFFICE 61621 [facility] CONSULTAT 5 5 [place] [facility] ION ADULT & NEW/ESTAB PED PATIENT 60 MIN OFFICE 16964 [facility] OUT[facility] 5 5 [place] T VISIT ORTHOPAED 10 [facility] MINUTES OFFICE 68200 KELVIN BRICE OUTPATIEN 5 5 N T VISIT NEUROLOGY 15 MINUTES [facility] - 5 5 N OUTPATIEN COMM[facility]TIY [facility] - 5 5 N OUTPATIEN COMMUNTIY [facility] - 5 5 N OUTPATIEN COMMUNTIY T HOSPITA OFFICE 33470 SUSIORI JAYLON OUTPATIEN 5 5 ESTEFANIA ESTEFANIA T VISIT 15 MINUTES OFFICE 20218 [facility] OUTPATI[facility] 4 4 [place] T VISIT ORTHOPAED 15 [facility] MINUTES OFFICE 93484 [facility] OUTPATI[facility] 4 4 [place] T VISIT ORTHOPAED 15 [facility] MINUTES HOSPITAL MARTY - 4 4 [facility] OUTPATIEN INC T OFFICE 82825 JAYLON IYER OUTPATIEN 4 4 ESTEFANIA ESTEFANIA T VISIT 15 MINUTES OFFICE 89605 [facility] OUTPATI[facility] 4 4 [place] T VISIT ORTHOPAED 15 [facility] MINUTES [facility] 34640 [place] KHAWARI CONSULTAT 4 4 MEDICAL MAR ION SERV NEW/ESTAB FOUNDATIO PATIENT N 80 MIN OFFICE 79061 [place] SUZANNE OUTPATIEN 4 4 MEDICAL DEBRA T NEW 30 SERV MINUTES FOUNDATIO OFFICE 09841 UNIVERSIT OUTPATIEN 4 4 Y T VISIT HOSPITAL 10 MINUTES OFFICE 92038 [facility]VIN ANNE OUTPATIEN 4 4 N FAMILY JADYN T VISIT CHIROPRAC 10 T MINUTES OFFICE 98954 JADENARAMIS VIVI OUTPATIEN 4 4 FOOT & N SAAD T VISIT ANKLE CE 15 MINUTES OFFICE 64121 [facility] OUTPATI[facility] 4 4 [place] T NEW 30 ORTHOPAED MINUTES [facility] OFFICE 02023 JAYLON IYER OUTPATIEN 4 4 ESTEFANIA ESTEFANIA T VISIT 15 MINUTES Emergency MICHELLE Yeung MD (ER) 4 19:07 4 23:43 [facility] Inpatient ARMIN Shields ([place]) 3 19:42 3 11:47 [facility]
--- OUTSIDE RECORDS SUMMARY | 2017-06-03 20:18 | External Medical Summary Rpt ---
Author Author , ESVIN MCALLISTER Address Unknown Phone [email or web address] Care Team Providers Care Capacity Analyst Name Role Phone JAYLON ESTEFANIA, JAYLON Unavailable Unavailable ESTEFANIA JAYLON ESTEFANIA, ARNOLD Unavailable Unavailable ESTEFANIA SPICER HARLEY, Unavailable Unavailable SPICER HARLEY [facility] Unavailable Unavailable ADULT & PED, [facility]ULT [facility] Unavailable Unavailable [facility], Un[facility] [place]available [place], [facility] Unavailable Unavailable [place], [facility] JOSEPHINE HENRIK, Unavailable Unavailable JOSEPHINE HENRIK SUZANNE DEBRA, SUZANNE Unavailable Unavailable [facility] Un[facility], [facility] Unavailable Unavailable [facility], Unavailable Unavailable [facility], Unavailable Unavailable [facility], [facility] Unavailable Unavailable Dar Shields MD, Unavailable Unavailable Dar Shields MD [facility] Unavailable Unavailable [facility] KHAWARI MAR, KHAWARI Unavailable [...] Unavailable Unavailable DAYANA SALAMANCA, DAYANA Unavailable Unavailable [facility], Unavailable Unavailable [facility] Purpose Continuity of Care Document - 08-01-2013 through 2016 Problems Code Diagnosis DOS Provider Status 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 [facility] 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 [id number] CHRONIC 01-22-2017 [place] MIGRAINE W/O AURA NOT INTRACT W/O SM R1030 LOWER 11-12-2016 [facility] ABDOMINAL PAIN UNSPECIFIED R3919 OTHER 07-09-2016 [facility]ULT[facility] S WITH INC MICTURITION M5032 OTH CERV 11-03-2015 [facility] 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 N MID-CERVICA L REGION 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 M9901 SEGMENTAL & 11-03-2015 [facility] SOMATIC FAMILY DYSFUNCTION [facility]CT CERVICAL REGION M9902 SEGMENTAL & 11-03-2015 [facility] SOMATIC FAMILY DYSFUNCTION [facility] THORACIC REGION M9903 SEGMENTAL & 11-03-2015 [facility] SOMATIC FAMILY DYSFUNCTION CH[facility]CT OF LUMBAR REGION M9904 SEGMENTAL & 11-03-2015 [facility] SOMATIC FAMILY DYSFUNCTION [facility]CT OF SACRAL REGION M9985 OTHER 11-03-2015 [facility] BIOMECHANIC FAMILY AL LESIONS [facility] OF PELVIC REGION L309 DERMATITIS 10-17-2015 [facility] PAD UNSPECIFIED S08335 CUTANEOUS 10-10-2015 [facility] ABSCESS OF PHYSICIANS LEFT UPPER GROUP LIMB B86 SCABIES 10-09-2015 [facility] Y12664 CUTANEOUS 10-09-2015 [facility] ABSCESS OF PHYSICIANS, LEFT LOWER PLLC LIMB I96095 CELLULITIS 10-09-2015 [facility] OF LEFT PHYSICIANS, UPPER LIMB PLLC B74473 CELLULITIS 10-09-2015 [facility] OF LEFT PHYSICIANS, LOWER LIMB PLLC 5982 POSTOPERATI 06-01-2015 [facility]ED 83594 INCOMPLETE 06-01-2015 [facility] BLADDER [facility] EMPTYING ADULT & PED 60256 URETHRAL 05-04-2015 [facility] STRICTURE [place] DUE TO ADULT & PED UNSPECIFIED INFECTION 41959 OTHER 05-04-2015 [facility] SPECIFIED [place] DISORDER OF ADULT & PED PENIS 13632 NOCTURIA 04-27-2015 [facility] [place] ADULT & PED 08358 CHRONIC 04-07-2015 [facility] MIGRAINE NEUROLOGY W/O AURA W/O INTRACTABLE W/O SM 7242 LUMBAGO 04-07-2015 [facility] [place] [facility] 43900 MEMORY LOSS 04-07-2015 [facility] 7840 HEADACHE 03-24-2015 [facility] 2689 UNSPECIFIED 02-18-2015 [facility] VITAMIN D COMM[facility]TI[facility] DEFICIENCY HOSPITA V5869 LONG-TERM 12-27-2014 [facility] (CURRENT) PHYSICIANS USE OF [place] OTHER MEDICATIONS 4619 ACUTE 11-26-2014 JAYLON MAC SINUSITIS, UNSPECIFIED 4660 ACUTE 11-26-2014 ARNORI ESTEFANIA BRONCHITIS 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 26792 SPINAL STEN 07-15-2014 [facility] LUMB REG ORTHOPAEDIC W/O S PLC NEUROGENIC CLAUDICATIO N 7213 LUMBOSACRAL 06-25-2014 [facility] WITHOUT MYELOPATHY 09759 DISPLCMT 06-25-2014 [facility] LUMBAR MEDICAL INTERVERT IMAGING ASS DISC W/O MYELOPATHY 3384 CHRONIC 06-21-2014 JAYLON MAC PAIN SYNDROME 45276 OSTEOARTHRO 06-21-2014 JAYLON MAC S INVLV MX SITES BUT [place] SPEC GEN 40610 HTN CKD UNS 06-09-2014 [facility] STAGE I THRU STAGE IV/UNS 47614 DIVERTICULO 06-09-2014 [facility] COLON 5853 CHRONIC 06-09-2014 [facility] DISEASE STAGE III (MODERATE) 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[facility] 37114 CALCANEAL 06-09-2014 [facility] SPUR SERV [facility] 7286 CONTRACTURE 06-09-2014 [facility] FASCIA 3670 HYPERMETROP 05-20-2014 [facility]EE[facility] GRE 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 [facility] ARTHRITIS FOOT & ANKLE CE 7224 DEGENERATIO 05-14-2014 [facility] N 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 44476 PLANTAR 05-14-2014 [facility] FASCIAL FOOT & FIBROMATOSI ANKLE CE S 7295 PAIN IN 05-14-2014 [facility] SOFT FOOT & TISSUES OF ANKLE CE LIMB 7391 NONALLOPATH 05-14-2014 [facility] IC LESION FAMILY OF CERVICAL CHIROPRACT REGION NEC 7392 NONALLOPATH 05-14-2014 [facility] IC LESION FAMILY OF THORACIC CHIROPRACT REGION NEC 7393 NONALLOPATH 05-14-2014 [facility] IC LESION FAMILY OF LUMBAR CHIROPRACT REGION NEC 7394 NONALLOPATH 05-14-2014 [facility] IC LESION FAMILY OF SACRAL CHIROPRACT REGION NEC V0179 CONTACT OR 05-11-2014 LAB [facility]NA [facility] EXPOSURE TO BHARATI OTHER HOLDINGS VIRAL DISEASES 4011 ESSENTIAL 04-08-2014 JAYLON MAC HYPERTENS N, BENIGN 7245 UNSPECIFIED 04-08-2014 JAYLON MAC BACKACHE 06422 UNSPECIFIED 04-08-2014 JAYLON MAC GANGLION 305.1 305.1 11-09-2013 [facility] TOBACCO USE [facility] 401.9 401.9 11-09-2013 [facility] HYPERTENSIO [facility] 71655 OTHER 11-09-2013 [facility] DISEASES OF MEDICAL LUNG NOT IMAGING ASS ELSEWHERE CLASSIFIED 562.11 562.11 11-09-2013 [facility] DIVERTICULI [facility] (W/O MENT OF HEMORRHAGE) 7862 COUGH 11-09-2013 [facility] 300.00 300.00 08-04-2013 [place] ANXIETY [facility] 724.2 724.2 08-04-2013 [facility] LUMBAGO [facility] R04.0 EPISTAXIS Allergies, Adverse Reactions, Alerts Type [...] 17 17 22 TA 1 96 PH MT AR N- MA CA CY FF #5 [...] S INC L STERILE PACKET EACH THERAPEUT 88289 KELVIN ANNE IC PX 1/> 6 N FAMILY JADYN AREAS CHIROPRAC EACH 15 T MIN EXERCISES CHIROPRAC 76857 K[facility] ANNE TIC 6 N FAMILY JADYN MANIPULAT CHIROPRAC KIM TX T SPINAL 3-4 REGIONS APPL 92690 K[facility] ANNE MODALITY 6 N FAMILY JADYN 1/> AREAS CHIROPRAC TRACTION T MECHANICA L APPL 30088 KELVIN ANNE MODALITY 6 N FAMILY JADYN 1/> AREAS CHIROPRAC ELEC T STIMJ UNATTENDE D CHIROPRAC 23898 [facility] DAYANA TIC 6 N FAMILY JADYN MANIPULAT CHIROPRAC KIM TX T SPINAL 3-4 REGIONS INITIAL 58898 [facility] CHANDA TOD INPATIENT 5 PHYSICIAN CONSULT S GROUP NEW/ESTAB PT 40 MIN INTERMITT A4352 MLK MLK ENT 5 ASSOCIATE ASSOCIATE URINARY S INC S INC CATHETER; COUDE TIP EACH LUBRICANT A4332 MLK MLK 5 ASSOCIATE ASSOCIATE INDIVIDUA S INC S INC L STERILE PACKET EACH INCISION 02745 [facility] CHANDA TOD & 5 PHYSICIAN DRAINAGE S GROUP ABSCESS SIMPLE/SI NGLE LUBRICANT A4332 MLK MLK 5 ASSOCIATE ASSOCIATE INDIVIDUA S INC S INC L STERILE PACKET EACH INTERMITT A4352 MLK MLK ENT 5 ASSOCIATE ASSOCIATE URINARY S INC S INC CATHETER; COUDE TIP EACH HOLA 96311 [facility] POST-VOID 5 [facility] ING ADULT & RESIDUAL PED URINE&/BL ADDER CAP HOLA 82260 [facility] POST-VOID 5 [facility] ING ADULT & RESIDUAL PED URINE&/BL ADDER CAP CYSTO 82931 [facility] CALIBRATI 5 [facility] ON DILAT ADULT & URTL PED STRIX/JB NOSIS COMPLEX 84175 [facility] UROFLOMET 5 [facility] RY ADULT & PED HOLA 94024 [facility] SP[facility] POST-VOID 5 [facility] ING ADULT & RESIDUAL PED URINE&/BL ADDER CAP ELECTROEN 06823 [facility] CEPHALOGR 5 N AM W/REC NEUROLOGY AWAKE&ASL EEP MRI BRAIN 83639 [facility] [place] KOSTELIC BRAIN 5 RADIOLOGY [place] STEM W/O CONTRAST MATERIAL ELECTROEN 06559 [facility] CEPHALOGR 5 N N AM W/REC COMMUNTIY COMMUNTIY AWAKE&[place] [address] [facility] PYRIDOXAL 5 N N COMMUNTIY COMMUNTIY [place] [address] [facility] FOLIC 5 N N ACID COMMUNTIY COMMUNTIY SERUM HOSPITA HOSPITA COMPREHEN 32007 [facility] SIVE 5 N N METABOLIC COMMUNTIY COMMUNTIY PANEL HOSPITA HOSPITA COLLECTIO 72170 [facility] N VENOUS 5 N N BLOOD COMMUNTIY COMMUNTIY [place]ENIPUN[place] [address] [facility] THYROID 5 N N STIMULATI COMMUNTIY COMMUNTIY NG [place] [address] [facility] THIAMINE- 5 N N VITAMIN COMMUNTIY COMMUNTIY B-1 HOSPITA HOSPITA CYANOCOBA 35867 [facility] [place] 5 N N VITAMIN COMMUNTIY COMMUNTIY B-12 HOSPITA HOSPITA 25 46979 [facility] HYDROXY 5 N N INCLUDES COMMUNTIY COMMUNTIY FRACTIONS HOSPITA HOSPITA IF PERFORMED COLLECTIO 60458 [facility] N VENOUS 5 N N BLOOD COMMUNTIY COMMUNTIY VENIPUNCT HOSPITA HOSPITA URE DRUG SCR G0434 COMBINED COMBINED NOT 5 PHYSICIAN PHYSICIAN CHROMATOG S LA S LA RAPHIC; ANY NUMBER PT ENC MRI 55025 [facility] SPINAL 4 MEDICAL HENRIK CANAL IMAGING LUMBAR ASS W/O CONTRAST MATERIAL RADEX 63820 [facility] SPINE 4 [place] LUMBOSACR ORTHOPAED AL 2/3 [facility] VIEWS RADEX 88006 [facility] WRIST 2 4 Y Y [facility]UTE COLLECTIO 07595 [facility] UNIVERS N VENOUS 4 Y Y BLOOD [facility] VENIPUNCT URE COMPREHEN 60337 [facility] UNIVERS SIVE 4 Y Y [facility]OSP[facility] HOSPITAL PANEL URNLS DIP 64955 [facility] 4 Y Y STICK/TAB [facility] LET RGNT AUTO W/O MICROSCOP Y RADEX 05952 [facility] FOOT 4 Y Y COMPLETE [facility] MINIMUM 3 VIEWS SEDIMENTA 13409 [facility] TION RATE 4 Y Y RBC [facility] AUTOMATED C-REACTIV 84622 [facility] E PROTEIN 4 Y Y HOSPITAL HOSPITAL CYCLIC 72903 [facility] CITRULLIN 4 Y Y ATED [facility]OSPITAL [place] [address] [facility] HEPATITIS 4 Y Y B HOSPITAL [place] [address] [facility] MAGNESIUM 4 [place] [address] [facility] PHOSPHORU 4 Y Y S HOSPITAL HOSPITAL INORGANIC RADEX 69502 [facility] HAND 2 4 Y Y VIEWS [facility] BLOOD 26598 [facility] COUNT 4 Y Y COMPLETE [facility] AUTO&AUTO DIFRNTL WBC RHEUMATOI 61769 [facility] D FACTOR 4 Y Y QUANTITAT [facility] KIM HEPATITIS 58967 [facility] C 4 Y Y ANTIBODY [facility] OPHTH 06444 [facility] 4 GRE GRE XM&EVAL COMPRHNSV ESTAB PT 1/> RADEX 06761 [facility] SPINE 4 N FAMILY JADYN CERVICAL CHIROPRAC 2 OR 3 T VIEWS RADEX 06317 [facility] SPINE 4 N FAMILY JADYN LUMBOSACR CHIROPRAC AL 2/3 T VIEWS CHIROPRAC 92479 [facility] TIC 4 N FAMILY JADYN MANIPULAT CHIROPRAC KIM TX T SPINAL 3-4 REGIONS THERAPEUT 32655 [facility] IC PX 1/> 4 N FAMILY N FAMILY AREAS CHIROPRAC CHIROPRAC EACH 15 T T MIN EXERCISES APPL 91702 [facility] MODALITY 4 N FAMILY N FAMILY 1/> AREAS CHIROPRAC CHIROPRAC ELEC T T STIMJ UNATTENDE D APPL 25568 [facility] MODALITY 4 N FAMILY JADYN 1/> AREAS CHIROPRAC TRACTION T MECHANICA L HEPATITIS 88702 LAB [facility] LAB ANA LILIA C 4 BHARATI BHARATI ANTIBODY HOLDINGS HOLDINGS RADEX 51361 [facility] HAND 4 [place] MINIMUM 3 ORTHOPAED VIEWS [facility] RADIOLOGI 46327 [facility] JOSEPHINE C EXAM 4 MEDICAL HENRIK CHEST 2 IMAGING VIEWS ASS FRONTAL&L ATERAL Encounters Encounter Start End Date Code Location Performer Type Date OFFICE 68270 DANYEL MONTAÑO OUTPATIEN 7 7 T VISIT 15 MINUTES OFFICE 26966 [facility] OUTPATIEN 7 7 T VISIT 15 MINUTES OFFICE 87402 KELVIN BRICE OUTPATIEN 6 6 N T VISIT NEUROLOGY 10 MINUTES OFFICE 89934 [facility] ANNE OUTPATIEN 6 6 N FAMILY JADYN T VISIT CHIROPRAC 10 T MINUTES OFFICE 32671 [facility] PAD CLEMENTS PAD OUTPATIEN 5 5 T VISIT 15 MINUTES EMERGENCY 40312 ADELA ZUÑIGA [facility] DEPT 5 5 PHYSICIAN VISIT S, PLLC HIGH SEVERITY& THREAT FUNCJ OFFICE 82296 [facility] OUTPATIEN 5 5 [facility] T VISIT ADULT & 15 PED MINUTES OFFICE 64347 [facility] OUTPATIEN 5 5 [facility] T VISIT ADULT & 15 PED MINUTES OFFICE 67424 [facility] CONSULTAT 5 5 [facility] ION ADULT & NEW/ESTAB PED PATIENT 60 MIN OFFICE 94828 [facility] OUTPATIEN 5 5 [place] T VISIT ORTHOPAED 10 [facility] MINUTES OFFICE 59220 KELVIN BRICE OUTPATIEN 5 5 N T VISIT NEUROLOGY 15 MINUTES [facility]OSP[facility]GE[facility] ALLEN - 5 5 N OUTPATIEN COMMUNTIY T [facility] - 5 5 N OUTPATIEN COMMUNTIY [facility] - 5 5 N OUTPATIEN COMMUNTIY T HOSPITA OFFICE 64221 SUSIORI JAYLON OUTPATIEN 5 5 ESTEFANIA ESTEFANIA T VISIT 15 MINUTES OFFICE 16421 [facility] OUTPATIEN 4 4 [place] T VISIT ORTHOPAED 15 [facility] MINUTES OFFICE 80953 [facility] OUTPATIEN 4 4 [place] T VISIT ORTHOPAED 15 [facility] MINUTES [facility]OSPITAL MARTY - 4 4 [facility] OUTPATIEN INC T OFFICE 98560 JAYLON IYER OUTPATIEN 4 4 ESTEFANIA ESTEFANIA T VISIT 15 MINUTES OFFICE 39556 [facility] OUTPATIEN 4 4 [place] T VISIT ORTHOPAED 15 [facility] MINUTES [facility] 34641 [place] KHAWARI CONSULTAT 4 4 MEDICAL MAR ION SERV NEW/ESTAB FOUNDATIO PATIENT N 80 MIN OFFICE 40594 [place] SUZANNE OUTPATIEN 4 4 MEDICAL DEBRA T NEW 30 SERV MINUTES FOUNDATIO OFFICE 79707 [facility] OUTPATIEN 4 4 Y T VISIT HOSPITAL 10 MINUTES OFFICE 56470 KELVIN ANNE OUTPATIEN 4 4 N FAMILY JADYN T VISIT CHIROPRAC 10 T MINUTES OFFICE 24270 JADENARAMIS VIVI OUTPATIEN 4 4 FOOT & N SAAD T VISIT ANKLE CE 15 MINUTES OFFICE 38355 [facility] OUTPATIEN 4 4 [place] T NEW 30 ORTHOPAED MINUTES ICS PLC OFFICE 16399 JAYLON IYER OUTPATIEN 4 4 ESTEFANIA ESTEFANIA T VISIT 15 MINUTES Emergency MICHELLE Yeung MD (ER) 4 19:07 4 23:43 [facility] Inpatient ARMIN Shields (IN) 3 19:42 3 11:47 [facility]
--- OUTSIDE RECORDS SUMMARY | 2017-06-03 20:21 | External Medical Summary Rpt ---
Author Author , ESVIN MCALLISTER Address Unknown Phone [email or web address] Care Team Providers Care Ladler Name Role Phone JAYLON MAC, JAYLON Unavailable Unavailable ESTEFANIA JAYLON ESTEFANIA, JAYLON Unavailable Unavailable ESTEFANIA [facility], Unavailable Unavailable SPICER HARLEY [facility] Unavailable Unavailable ADULT & PED, [facility] [place] [facility] Un[facility], Unavailable Unavailable [facility] Unavailable Unavailable [facility], [facility] Unavailable Unavailable [facility], [facility] JSOEPHINE HENRIK, Unavailable Unavailable JOSEPHINE HENRIK SUZANNE DEBRA, SUZANNE Unavailable Unavailable [facility] Unavailable Unavailable CH[facility]CT, [facility], Unavailable Unavailable [facility], Unavailable Unavailable [facility], [facility] Unavailable Unavailable [facility] KHAWARI MAR, KHAWARI Unavailable Unavailable [facility] Unavailable [facility], [facility] Unavailable Unavailable [facility], [facility] Unavailable Unavailable [facility], [facility] Unavailable Unavailable [facility], [facility], Unavailable Unavailable [facility], Unavailable Unavailable [facility], Unavailable Unavailable [facility] [...] Unavailable Unavailable DAYANA SALAMANCA, DAYANA Unavailable Unavailable [facility], Unavailable Unavailable [facility] Purpose Continuity of Care Document - 11-09-2013 through 2016 Problems Code Diagnosis DOS Provider Status [id number] 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-13-2017 [facility] 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 [id number] CHRONIC 01-22-2017 [place] MIGRAINE W/O AURA NOT INTRACT W/O SM R1030 LOWER 11-12-2016 [facility] ABDOMINAL PAIN UNSPECIFIED R3919 OTHER 07-09-2016 [facility] S WITH INC MICTURITION M5032 OTH CERV 11-03-2015 [facility] 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 N MID-CERVICA L REGION M5117 INTERVERTEB 11-03-2015 [facility] 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 LS RGN M9901 SEGMENTAL & 11-03-2015 [facility] [place] SOMATIC FAMILY DYSFUNCTION [facility]IR[facility]CT CERVICAL REGION M9902 SEGMENTAL & 11-03-2015 [facility] SOMATIC FAMILY DYSFUNCTION [facility] THORACIC REGION M9903 SEGMENTAL & 11-03-2015 [facility] [place] SOMATIC FAMILY DYSFUNCTION [facility] OF LUMBAR REGION M9904 SEGMENTAL & 11-03-2015 [place] SOMATIC FAMILY DYSFUNCTION CHIROP[facility]CT OF SACRAL REGION M9985 OTHER 11-03-2015 [place] BIOMECHANIC FAMILY AL LESIONS CHIROPRACT OF PELVIC REGION L309 DERMATITIS 10-17-2015 [facility] PAD UNSPECIFIED L18980 CUTANEOUS 10-10-2015 [facility] ABSCESS OF PHYSICIANS LEFT UPPER GROUP LIMB B86 SCABIES 10-09-2015 [facility] S83473 CUTANEOUS 10-09-2015 [facility] ABSCESS OF PHYSICIANS, LEFT LOWER PLLC LIMB G34029 CELLULITIS 10-09-2015 [facility] OF LEFT PHYSICIANS, UPPER LIMB PLLC H92739 CELLULITIS 10-09-2015 [facility] OF LEFT PHYSICIANS, LOWER LIMB PLLC 5982 POSTOPERATI 06-01-2015 [facility] STRICTURE [facility]ULT [facility]ED 88684 INCOMPLETE 06-01-2015 [facility] 19437 URETHRAL 05-04-2015 [facility]ED UNSPECIFIED INFECTION 73430 OTHER 05-04-2015 [facility] SPECIFIED [place] DISORDER OF ADULT & PED PENIS 56863 NOCTURIA 04-27-2015 [facility] [place] ADULT [facility] 42509 CHRONIC 04-07-2015 [facility] MIGRAINE NEUROLOGY W/O AURA W/O INTRACTABLE W/O SM 7242 LUMBAGO 04-07-2015 [facility] ORTHOPAEDIC S PLC 86790 MEMORY LOSS 04-07-2015 [facility] 7840 HEADACHE 03-24-2015 [facility] [place] [facility] 2689 UNSPECIFIED 02-18-2015 [facility] VITAMIN D COMMUNTIY DEFICIENCY HOSPITA V5869 LONG-TERM 12-27-2014 [facility] (CURRENT) [facility]YSICI[facility] USE OF [place] OTHER MEDICATIONS 4619 ACUTE 11-26-2014 JAYLON MAC SINUSITIS, UNSPECIFIED 4660 ACUTE 11-26-2014 [facility] ESTEFANIA BRONCHITIS 27308 DEGEN 08-19-2014 [facility] LUMBAR/LUMB ORTHOPAEDIC OSACRAL S PLC INTERVERTEB RAL DISC 52625 SPINAL STEN 07-15-2014 [facility] LUMB REG ORTHOPAEDIC W/O S PLC NEUROGENIC CLAUDICATIO N 7213 LUMBOSACRAL 06-25-2014 [facility] SPONDYLOSIS [facility] WITHOUT MYELOPATHY 72692 DISPLCMT 06-25-2014 [facility]ICAL INTERVERT IMAGING ASS DISC W/O MYELOPATHY 3384 CHRONIC 06-21-2014 JAYLON ESTEFANIA PAIN SYNDROME 30996 OSTEOARTHRO 06-21-2014 JAYLON MAC S INVLV MX SITES BUT NOT SPEC GEN 00038 HTN CKD UNS 06-09-2014 [facility] STAGE I THRU STAGE IV/UNS 77105 DIVERTICULO 06-09-2014 [facility] COLON 5853 CHRONIC 06-09-2014 [facility] DISEASE STAGE III (MODERATE) 30644 CONTRACTURE 06-09-2014 [place] [facility] 76733 CALCANEAL 06-09-2014 [place] [facility] SPUR SERV [facility] 7286 CONTRACTURE 06-09-2014 [facility] FASCIA 3670 HYPERMETROP 05-20-2014 [facility]ED[facility] 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 [place] [facility] ANKLE CE 7224 DEGENERATIO 05-14-2014 [facility] N 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 94359 PLANTAR 05-14-2014 [facility] [facility] FO[facility] & FIBROMATOSI ANKLE CE S 7295 PAIN IN 05-14-2014 [facility] TISSUES OF ANKLE CE LIMB 7391 NONALLOPATH 05-14-2014 [facility] [facility] IC LESION FAMILY OF CERVICAL CHIROPRACT REGION NEC 7392 NONALLOPATH 05-14-2014 [place] IC LESION FAMILY OF THORACIC CHIROPRACT REGION NEC 7393 NONALLOPATH 05-14-2014 [place] IC LESION FAMILY OF LUMBAR CHIROPRACT REGION NEC 7394 NONALLOPATH 05-14-2014 [place] IC LESION FAMILY OF SACRAL CHIROPRACT REGION NEC V0179 CONTACT OR 05-11-2014 [facility] EXPOSURE TO BHARATI OTHER HOLDINGS VIRAL DISEASES 4011 ESSENTIAL 04-08-2014 JAYLON MAC HYPERTENSIO N, BENIGN 7245 UNSPECIFIED 04-08-2014 JAYLON MAC BACKACHE 32636 UNSPECIFIED 04-08-2014 JAYLON MAC GANGLION 04443 OTHER 11-09-2013 [facility] DISEASES OF MEDICAL LUNG NOT IMAGING ASS ELSEWHERE CLASSIFIED 7862 COUGH 11-09-2013 [facility] Medications Na ND Rx Da Fi Fi [...] 17 17 22 TA 1 96 PH VT AR N- MA CA CY FF #5 [phone] Procedures Procedure DOS Code Location Performer Comment [...] INC S INC CATHETER; COUDE TIP EACH THERAPEUT 56387 KELVIN ANNE IC PX 1/> 6 N FAMILY JADYN AREAS CHIROPRAC EACH 15 T MIN EXERCISES APPL 75521 KELVIN DAYANA MODALITY 6 N FAMILY JADYN 1/> AREAS CHIROPRAC ELEC T STIMJ UNATTENDE D APPL 71688 STEPHYADE DAYANA MODALITY 6 N FAMILY JADYN 1/> AREAS CHIROPRAC TRACTION T MECHANICA L CHIROPRAC 10626 KELVIN ANNE TIC 6 N FAMILY JADYN MANIPULAT CHIROPRAC KIM TX T SPINAL 3-4 REGIONS CHIROPRAC 41058 KELVIN DAYANA TIC 6 N FAMILY JADYN MANIPULAT CHIROPRAC KIM TX T SPINAL 3-4 REGIONS INITIAL 79701 [facility] CHANDA TOD INPATIENT 5 PHYSICIAN CONSULT S GROUP NEW/ESTAB PT 40 MIN INCISION 64601 [facility] CHANDA TOD & 5 PHYSICIAN DRAINAGE S GROUP ABSCESS SIMPLE/SI NGLE LUBRICANT A4332 MLK MLK 5 ASSOCIATE ASSOCIATE INDIVIDUA S INC S INC L STERILE PACKET EACH INTERMITT A4352 MLK MLK ENT 5 ASSOCIATE ASSOCIATE URINARY S INC S INC CATHETER; COUDE TIP EACH INTERMITT A4352 MLK MLK ENT 5 ASSOCIATE ASSOCIATE URINARY S INC S INC CATHETER; COUDE TIP EACH LUBRICANT A4332 MLK MLK 5 ASSOCIATE ASSOCIATE INDIVIDUA S INC S INC L STERILE PACKET EACH HOLA 54807 [facility] POST-VOID 5 LYDIA HARLEY ING ADULT & RESIDUAL PED URINE&/BL ADDER CAP CYSTO 81673 [facility] CALIBRATI 5 [facility] SOUZA ON DILAT ADULT & URTL PED STRIX/JB NOSIS HOLA 44249 [facility] POST-VOID 5 LYDIA HARLEY ING ADULT & RESIDUAL PED URINE&/BL ADDER CAP COMPLEX 39315 [facility] UROFLOMET 5 [facility] SOUZA RY ADULT & PED HOLA 77126 [facility] SP[facility] POST-VOID 5 [facility] SOUZA ING ADULT & RESIDUAL PED URINE&/BL ADDER CAP ELECTROEN 46455 [facility] CEPHALOGR 5 N N AM W/REC COMMUNTIY COMMUNTIY AWAKE&GINA HOSPITA HOSPITA WSY ELECTROEN 20440 [facility] CEPHALOGR 5 N AM W/REC NEUROLOGY AWAKE&ASL EEP MRI BRAIN 93614 [facility] BRAIN 5 N N STEM W/O COMMUNTIY COMMUNTIY CONTR[place] [address] [facility] THIAMINE- 5 N N VITAMIN COMMUNTIY COMMUNTIY B-1 HOSPITA HOSPITA COMPREHEN 62420 [facility] SIVE 5 N N METABOLIC COMMUNTIY COMMUNTIY [place] [address] [facility] FOLIC 5 N N ACID COMMUNTIY COMMUNTI[place] [address] [facility] THYROID 5 N N STIMULATI COMMUNTIY COMMUNTIY [place] [address] [facility] PYRIDOXAL 5 N N COMMUNTIY COMMUNTIY PHOSPHATE HOSPITA HOSPITA COLLECTIO 38710 [facility] N VENOUS 5 N N BLOOD COMMUNTIY COMMUNTIY VENIPUNCT HOSPITA HOSPITA URE CYANOCOBA 68475 [facility] WESTON 5 N N VITAMIN COMMUNTIY COMMUNTIY B-12 HOSPITA HOSPITA 25 32964 [facility] HYDROXY 5 N N INCLUDES COMMUNTIY COMMUNTIY FRACTIONS HOSPITA HOSPITA IF PERFORMED COLLECTIO 98518 [facility] N VENOUS 5 N N BLOOD COMMUNTIY COMMUNTIY VENIPUNCT HOSPITA HOSPITA URE DRUG SCR G0434 COMBINED COMBINED NOT 5 PHYSICIAN PHYSICIAN CHROMATOG S LARRY Arechiga [place] DEVENDRA; ANY NUMBER PT ENC MRI 77819 [facility] JOSEPHINE SPINAL 4 MEDICAL HENRIK CANAL IMAGING LUMBAR ASS W/O CONTRAST MATERIAL RADEX 75458 [facility] SPINE 4 [place] LUMBOSACR ORTHOPAED AL 2/3 [facility] VIEWS HEPATITIS 62556 [facility] C 4 Y Y ANTIBODY [facility] BLOOD 47506 [facility] COUNT 4 Y Y COMPLETE [facility] AUTO&AUTO DIFRNTL WBC RHEUMATOI 60346 [facility] D FACTOR 4 Y Y QUANTITAT [facility] KIM C-REACTIV 26728 [facility] E PROTEIN 4 Y Y [facility] COLLECTIO 78077 [facility] N VENOUS 4 Y Y BLOOD [facility] VENIPUNCT URE URNLS DIP 12200 [facility] 4 Y Y STICK/TAB [facility] LET RGNT AUTO W/O MICROSCOP Y COMPREHEN 07865 [facility] SIVE 4 Y Y METABOLIC [facility] [address] [facility] MAGNESIUM 4 Y Y HOSPITAL HOSPITAL RADEX 29899 [facility] WRIST 2 4 Y Y VIEWS [facility] RADEX 40950 [facility] FOOT 4 Y Y COMPLETE [facility] MINIMUM 3 VIEWS CYCLIC 71604 [facility] CITRULLIN 4 Y Y ATED [facility] [place] [address] [facility] HEPATITIS 4 Y Y B [facility] SURFACE ANTIGEN RADEX 47740 [facility] HAND 2 4 Y Y [facility] [place] [address] [facility] PHOSPHORU 4 Y Y S [facility] INORGANIC SEDIMENTA 10058 [facility] TION RATE 4 Y Y RBC [facility] AUTOMATED OPHTH 99260 [facility] 4 GRE GRE XM&EVAL COMPRHNSV ESTAB PT 1/> RADEX 71898 PSYCHIATRIC [facility] SPINE 4 N FAMILY JADYN CERVICAL CHIROPRAC 2 OR 3 T VIEWS CHIROPRAC 62056 PSYCHIATRIC DAYANA TIC 4 N FAMILY JADYN MANIPULAT CHIROPRAC KIM TX T SPINAL 3-4 REGIONS THERAPEUT 95414 [facility] IC PX 1/> 4 N FAMILY N FAMILY AREAS CHIROPRAC CHIROPRAC EACH 15 T T MIN EXERCISES APPL 34745 [facility] MODALITY 4 N FAMILY JADYN 1/> AREAS CHIROPRAC TRACTION T MECHANICA L APPL 53701 [facility] MODALITY 4 N FAMILY N FAMILY 1/> AREAS CHIROPRAC CHIROPRAC ELEC T T STIMJ UNATTENDE D RADEX 17223 [facility] SPINE 4 N FAMILY JADYN LUMBOSACR CHIROPRAC AL 2/3 T VIEWS HEPATITIS 81228 [facility] C 4 BHARATI BHARATI ANTIBODY HOLDINGS HOLDINGS RADEX 26865 [facility] HAND 4 [place] MINIMUM 3 ORTHOPAED VIEWS [facility]CS PLC RADIOLOGI 50790 [facility] C EXAM 4 MEDICAL HENRIK CHEST 2 IMAGING VIEWS ASS FRONTAL&L ATERAL Encounters Encounter Start End Date Code Location Performer Type Date OFFICE 60250 DANYEL MONTAÑO OUTPATIEN 7 7 T VISIT 15 MINUTES OFFICE 05525 [facility] CLEMENTS OUTPATIEN 7 7 T VISIT 15 MINUTES OFFICE 97469 STEPHYADE BRICE OUTPATIEN 6 6 N T VISIT NEUROLOGY 10 MINUTES OFFICE 93020 KELVIN ANNE OUTPATIEN 6 6 N FAMILY JADYN T VISIT CHIROPRAC 10 T MINUTES OFFICE 55920 [facility] P[facility] PAD OUTPATIEN 5 5 T VISIT 15 MINUTES EMERGENCY 16993 ADELA ZUÑIGA [facility] DE[facility] 5 5 PHYSICIAN VISIT S, PLLC HIGH SEVERITY& THREAT FUNCJ OFFICE 63413 [facility] OUTPATIEN 5 5 LYDIA HARLEY T VISIT ADULT & 15 PED MINUTES OFFICE 27831 [facility] OUTPATIEN 5 5 [facility] HAR[facility] T VISIT ADULT & 15 PED MINUTES OFFICE 06255 [facility] CONSULTAT 5 5 [facility] HARLEY ION ADULT & NEW/ESTAB PED PATIENT 60 MIN OFFICE 49989 [facility] OUTPATIEN 5 5 N T VISIT NEUROLOGY 15 MINUTES OFFICE 05820 [facility] OUTPATIEN 5 5 [place] T VISIT ORTHOPAED 10 [facility] MINUTES [facility] OFF[facility] 15411 JAYLON IYER OUTPATIEN 5 5 ESTEFANIA ESTEFANIA T VISIT 15 MINUTES OFFICE 73735 [facility] OUTPATIEN 4 4 [place] T VISIT ORTHOPAED 15 [facility] MINUTES OFFICE 31728 [facility] OUTPATIEN 4 4 [place] T VISIT ORTHOPAED 15 [facility] MINUTES HOSPITAL MARTY - 4 4 MEM HOSP OUTPATIEN INC T OFFICE 35630 JAYLON IYER OUTPATIEN 4 4 ESTEFANIA ESTEFANIA T VISIT 15 MINUTES OFFICE 86858 [facility] OUTPATIEN 4 4 [place] T VISIT ORTHOPAED 15 [facility] MINUTES [facility]OSPITAL [facility] 28997 [facility] OUTPATIEN 4 4 Y T VISIT HOSPITAL 10 MINUTES OFFICE 73961 [place] SUZANNE OUTPATIEN 4 4 MEDICAL DEBRA T NEW 30 SERV MINUTES FOUNDATIO OFFICE 95242 [place] VIJAYARI CONSULTAT 4 4 MEDICAL MAR ION SERV NEW/ESTAB FOUNDATIO PATIENT N 80 MIN OFFICE 81874 YOHANA WALLACE OUTPATIEN 4 4 FOOT & N SAAD T VISIT ANKLE CE 15 MINUTES OFFICE 86049 KELVIN ANNE OUTPATIEN 4 4 N FAMILY JADYN T VISIT CHIROPRAC 10 T MINUTES OFFICE 73707 [facility] OUTPATIEN 4 4 [place] T NEW 30 ORTHOPAED MINUTES [facility] OFFICE 69877 JAYLON IYER OUTPATIEN 4 4 ESTEFANIA ESTEFANIA T VISIT 15 MINUTES
--- OUTSIDE RECORDS SUMMARY | 2017-06-03 20:21 | External Medical Summary Rpt ---
Author Author AUGIEBARBRA Layar, ESVIN Layar Organization [employer] Address Unknown Phone Unavailable Results Comprehensive metabolic 2000 panel in Serum or Plasma Observa Value Referen Units Interpr Notes Date tion ce etation Range Albumin/G 1.1 - 1.8 No Low No Jun 02 lobulin informati informati 2017 8:00 [Mass on in on in PM ratio] in source source Serum or data data Plasma Albumin 3.4 - 5.0 gm/dL Normal No Jun 02 [Mass/vol informati 2016 8:00 ume] in on in PM Serum or source Plasma data Alkaline 46 - 116 U/L Normal No Jun 02 phosphata informati 2016 8:00 se on in PM [Enzymati source c data activity/ volume] in Serum or Plasma Bilirubin 0.2 - 1.0 mg/dL Normal No Jun 02 .total informati 2016 8:00 [Mass/vol on in PM ume] in source Serum or data Plasma Urea 7 - 18 mg/dL Normal No Jun 02 nitrogen informati 2016 8:00 [Mass/vol on in PM ume] in source Serum or data Plasma Calcium 8.5 - mg/dL Normal No Jun 02 [Mass/vol 10.1 informati 2017 8:00 ume] in on in PM Serum or source Plasma data Chloride 98 - 107 mmoL/L Normal No Jun 02 [Moles/vo informati 2016 8:00 lume] in on in PM Serum or source Plasma data Carbon 21.0 - mmoL/L Normal No Jun 02 dioxide, 32.0 informati 2017 8:00 total on in PM [Moles/vo source lume] in data Serum or Plasma Creatinin 0.70 - mg/dL Normal No Jun 02 e 1.30 informati 2017 8:00 [Mass/vol on in PM ume] in source Serum or data Plasma Creatinin 50 - 200 ML/MIN Normal No Jun 02 e renal informati 2017 8:00 clearance on in PM source predicted data by Cockcroft -Gault formula Estimated >60 ML/MIN No REFERENCE Jun 02 informati RANGE: 2017 8:00 glomerula on in >60 PM r source ML/MIN/1. filtratio data 73 SQUARE n rate METERSIf (GF this patient is -A merican, then multiply theresult by 1.210. Globulin 1.3 - 3.2 gm/dL High No Jun 02 [Mass/vol informati 2016 8:00 ume] in on in PM Serum source data Glucose 74 - 106 mg/dL Normal No Jun 02 [Mass/vol informati 2016 8:00 ume] in on in PM Serum or source Plasma data Potassium 3.5 - 5.1 mmoL/L Normal No Jun 02 inform2016 8:00 [Moles/vo on in PM lume] in source Serum or data Plasma Sodium 136 - 145 mmoL/L Low No Jun 02 [Moles/vo informati 2016 8:00 lume] in on in PM Serum or source Plasma data Aspartate 15 - 37 U/L High Jun 02 informati 2016 8:00 aminotran on in PM sferase source [Enzymati data c activity/ volume] in Serum or Plasma Alanine 12 - 78 U/L Normal Jun 02 aminotran informati 2016 8:00 sferase on in PM [Enzymati source c data activity/ volume] in Serum or Plasma Protein 6.4 - 8.2 gm/dL High No Jun 02 [Mass/vol informati 2016 8:00 ume] in on in PM Serum or source Plasma data INR in Blood by Coagulation assay Observa Value Referen Units Interpr Notes Date tion ce etation Range IS PATIENT ON ANTICOAGULANTS? N INR in 0.9 - 1.1 No Normal INDICATIO Jun 02 Blood by informati N 2016 8:00 Coagulati on in PM on assay source INR data RANGETHER APY FOR DVT, PE, ATRIAL FIB; 2.0 - 3.0PROPHY LAXIS FOR VTETHERAP Y FOR MECHANICA L HEART 2.5 - 3.5VALVE; PREVENTIO N OF SYSTEMICE MBOLISM SECONDARY TO AMI Prothromb 9.4 - SECONDS Normal No Jun 02 in time 11.8 informati 2016 8:00 (PT) in on in PM Platelet source poor data plasma by Coagulati on assay CBC W Auto Differential panel in Blood Observa Value Referen Units Interpr Notes Date tion ce etation Range Basophils 0 - 0.2 K/MM3 Normal No Jun 02 informati 2017 8:00 [#/volume on in PM ] in source Blood by data Automated count Basophils 0.1 - 2.0 % Normal No Jun 02 /100 informati 2016 8:00 leukocyte on in PM s in source Blood by data Automated count Eosinophi 0.0 - 0.4 K/mm3 Normal No Jun 02 ls informati 2016 8:00 [#/volume on in PM ] in source Blood by data Automated count Eosinophi 0.1 - % Normal No Jun 02 ls/100 12.0 informati 2016 8:00 leukocyte on in PM s in source Blood by data Automated count Granulocy 1.3 - 8.0 K/mm3 Normal No Jun 02 caroline informati 2016 8:00 [#/volume on in PM ] in source Blood by data Automated count Granulocy 37.0 - % Normal No Jun 02 caroline/100 80.0 informati 2016 8:00 leukocyte on in PM s in source Blood by data Automated count Hematocri 42.0 - % Low No Jun 02 t [Volume 52.0 informati 2016 8:00 on in PM Fraction] source of Blood data Hemoglobi 14.1 - g/dL Low No Jun 02 n 18.0 informati 2016 8:00 [Mass/vol on in PM ume] in source Blood data Lymphocyt 0.7 - 4.5 K/mm3 Normal No Jun 02 es informati 2016 8:00 [#/volume on in PM ] in source Unspecifi data ed specimen by Automated count Lymphocyt 10 - 50 % Normal No Jun 02 es 2016 8:00 [#/volume on in PM ] in source Unspecifi data ed specimen by Automated count Erythrocy 27 - 31.2 pg Normal No Jun 02 te mean informati 2016 8:00 corpuscul on in PM ar source hemoglobi data n [Entitic mass] Erythrocy 31.8 - g/dl Normal No Jun 02 te mean 35.4 informati 2016 8:00 corpuscul on in PM ar source hemoglobi data n concentra tion [Mass/vol ume] by Automated count Erythrocy 82.2 - fl Normal No Jun 02 te mean 97.8 informati 2016 8:00 corpuscul on in PM ar volume source [Entitic data volume] by Automated count Monocytes 0.1 - 1.0 K/mm3 Normal No Jun 02 informati 2016 8:00 [#/volume on in PM ] in source Blood by data Automated count Monocytes 1.7 - 9.3 % Normal No Jun 02 /100 informati 2016 8:00 leukocyte on in PM s in source Blood by data Automated count Platelet 7.4 - fl Normal No Jun 02 mean 10.4 2016 8:00 volume on in PM [Entitic source volume] data in Blood by Automated count Platelets 142 - 424 K/mm3 High No Jun 02 informati 2016 8:00 [#/volume on in PM ] in source Blood data Erythrocy 4.6 - 6.2 M/mm3 Low No Jun 02 caroline informati 2016 8:00 [#/volume on in PM ] in source Amniotic data fluid Erythrocy 11.5 - % Normal Jun 02 te 17.5 ati 2016 8:00 distribut on in PM ion width source [Entitic data volume] by Automated count Leukocyte 4.8 - K/MM3 Normal No Jun 02 s 10.8 informati 2016 8:00 [#/volume on in PM ] in source Blood data
--- OUTSIDE RECORDS SUMMARY | 2017-06-03 20:21 | External Medical Summary Rpt ---
Demographics Preferred Language Turkish Marital Status Unknown Jew Affiliation Unknown Race Unknown Ethnic Group Unknown Author Author , ESVIN MCALLISTER Address Unknown Phone [email or web address] Immunization Name Date Rout CVX Reac Dose Comm Prov Is Faci e tion ent ider Refu lity Give sed n Td 03-1 9 999 Hist H149 No H149 (lexx 0-19 ori lt), 97 al Info adso rmat rbed ion - Sour ce Unsp ecif ied
--- OUTSIDE RECORDS SUMMARY | 2017-06-03 20:21 | External Medical Summary Rpt ---
Author Author AUGIEBARBRA [employer], [employer] Organization [employer] Address Unknown Phone Unavailable [...]
--- OUTSIDE RECORDS SUMMARY | 2017-06-03 20:21 | External Medical Summary Rpt ---
Author Author , ESVIN MCALLISTER Address Unknown Phone [email or web address] Care Team Providers Care Process Safety Manager Name Role Phone JAYLON MAC, JAYLON Unavailable Unavailable ESTEFANIA JAYLON ESTEFANIA, JAYLON Unavailable Unavailable ESTEFANIA SPICER HARLEY, Unavailable Unavailable SPICER HARLEY [facility] Unavailable Unavailable ADULT & PED, [facility] Unavailable Un[facility], Un[facility]available [facility] Un[facility] Un[facility] [place], [facility] Unavailable [facility]available [facility], [facility] JOSEPHINE HENRIK, Unavailable Unavailable JOSEPHINE HENRIK SUZANNE DEBRA, SUZANNE Unavailable Unavailable DEBRA [facility] Un[facility] Unavailable [facility], [facility] Unavailable Unavailable [facility], [facility], Unavailable [facility]available [facility], Unavailable Unavailable [facility], [facility] Unavailable Unavailable [facility] Un[facility], [facility] KHAWARI MAR, KHAWARI Unavailable [...] Unavailable Unavailable DAYANA SALAMANCA, DAYANA Unavailable Unavailable [facility], Unavailable Unavailable [facility] Purpose Continuity of Care Document - 11-09-2013 through 2016 Problems Code Diagnosis DOS Provider Status [id number] 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-13-2017 [facility] 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 [id number] CHRONIC 01-22-2017 [place] [facility] W/O AURA NOT INTRACT W/O SM R1030 LOWER 11-12-2016 [facility] ABDOMINAL PAIN UNSPECIFIED R3919 OTHER 07-09-2016 [facility] S WITH INC MICTURITION M5032 OTH CERV 11-03-2015 [place] 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 N MID-CERVICA L REGION M5117 INTERVERTEB 11-03-2015 [facility] 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 LS RGN M9901 SEGMENTAL & 11-03-2015 [place] SOMATIC FAMILY DYSFUNCTION [facility] CERVICAL REGION M9902 SEGMENTAL & 11-03-2015 [place] SOMATIC FAMILY DYSFUNCTION [facility] THORACIC REGION M9903 SEGMENTAL & 11-03-2015 [place] SOMATIC FAMILY DYSFUNCTION [facility] OF LUMBAR REGION M9904 SEGMENTAL & 11-03-2015 [place] SOMATIC FAMILY DYSFUNCTION [facility] OF SACRAL REGION M9985 OTHER 11-03-2015 [place] BIOMECHANIC FAMILY AL LESIONS [facility] OF PELVIC REGION L309 DERMATITIS 10-17-2015 [facility] PAD UNSPECIFIED N74184 CUTANEOUS 10-10-2015 [facility] LEFT UPPER GROUP LIMB B86 SCABIES 10-09-2015 [facility] A93335 CUTANEOUS 10-09-2015 [facility] ABSCESS OF PHYSICIANS, LEFT LOWER PLLC LIMB O32888 CELLULITIS 10-09-2015 [facility] OF LEFT PHYSICIANS, UPPER LIMB PLLC K37840 CELLULITIS 10-09-2015 [facility] OF LEFT PHYSICIANS, LOWER LIMB PLLC 5982 POSTOPERATI 06-01-2015 [facility] [place] [facility]ED 73638 INCOMPLETE 06-01-2015 [facility] BLADDER [facility] LANIERY EMPTYING ADULT & PED 58296 URETHRAL 05-04-2015 [facility] STRICTURE [facility] LANIERY DUE TO ADULT & PED UNSPECIFIED INFECTION 73952 OTHER 05-04-2015 [facility] SPECIFIED [place] [facility]ULT & PED PENIS 65460 NOCTURIA 04-27-2015 [facility] [place] [facility] 58929 CHRONIC 04-07-2015 [place] MIGRAINE NEUROLOGY W/O AURA W/O INTRACTABLE W/O SM 7242 LUMBAGO 04-07-2015 [facility] ORTHOPAEDIC S PLC 99738 MEMORY LOSS 04-07-2015 [facility] 7840 HEADACHE 03-24-2015 [facility] 2689 UNSPECIFIED 02-18-2015 [place] VITAMIN D COMMUNTIY DEFICIENCY HOSPITA V5869 LONG-TERM 12-27-2014 [facility] (CURRENT) PHYSICI[facility] USE OF [place] OTHER MEDICATIONS 4619 ACUTE 11-26-2014 JAYLON MAC SINUSITIS, UNSPECIFIED 4660 ACUTE 11-26-2014 [facility] ESTEFANIA BRONCHITIS 77504 DEGEN 08-19-2014 [facility] LUMBAR/LUMB ORTHOPAEDIC OSACRAL S PLC INTERVERTEB RAL DISC 65722 SPINAL STEN 07-15-2014 [facility] LUMB REG ORTHOPAEDIC W/O S PLC NEUROGENIC CLAUDICATIO N 7213 LUMBOSACRAL 06-25-2014 [facility] SPONDYLOSIS [facility]ING [facility] WITHOUT MYELOPATHY 65166 DISPLCMT 06-25-2014 [facility] INTERVERT IMAGING ASS DISC W/O MYELOPATHY 3384 CHRONIC 06-21-2014 JAYLON ESTEFANIA PAIN SYNDROME 92708 OSTEOARTHRO 06-21-2014 JAYLON MAC S INVLV MX SITES BUT [place]C GEN 56038 HTN CKD UNS 06-09-2014 [facility] HOSPITAL STAGE I THRU STAGE IV/UNS 22663 DIVERTICULO 06-09-2014 [facility] COLON 5853 CHRONIC 06-09-2014 [facility] DISEASE STAGE III (MODERATE) 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 83511 CALCANEAL 06-09-2014 [facility] SPUR SERV FOUNDATIO 7286 CONTRACTURE 06-09-2014 [facility] FASCIA 3670 HYPERMETROP 05-20-2014 [facility] 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 [place] [facility] FOOT & ANKLE CE 7224 DEGENERATIO 05-14-2014 [place] N 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 58011 PLANTAR 05-14-2014 [place] FASCIAL FOOT & FIBROMATOSI ANKLE CE S 7295 PAIN IN 05-14-2014 [facility] FOOT & TISSUES OF ANKLE CE LIMB 7391 NONALLOPATH 05-14-2014 [place] IC LESION FAMILY OF CERVICAL CHIROPRACT REGION NEC 7392 NONALLOPATH 05-14-2014 [place] IC LESION FAMILY OF THORACIC CHIROPRACT REGION NEC 7393 NONALLOPATH 05-14-2014 [place] IC LESION FAMILY OF LUMBAR CHIROPRACT REGION NEC 7394 NONALLOPATH 05-14-2014 [place] IC LESION FAMILY OF SACRAL CHIROPRACT REGION NEC V0179 CONTACT OR 05-11-2014 [facility] EXPOSURE TO BHARATI OTHER HOLDINGS VIRAL DISEASES 4011 ESSENTIAL 04-08-2014 JAYLON MAC HYPERTENSIO N, BENIGN 7245 UNSPECIFIED 04-08-2014 JAYLON MAC BACKACHE 18275 UNSPECIFIED 04-08-2014 JAYLON MAC GANGLION 37837 OTHER 11-09-2013 [place] [place] DISEASES OF MEDICAL LUNG NOT IMAGING ASS ELSEWHERE CLASSIFIED 7862 COUGH 11-09-2013 [facility] Medications Na ND Rx [...] 17 17 22 TA 1 96 PH [place] AR N- [place] CA CY FF #5 [...] S INC CATHETER; COUDE TIP EACH THERAPEUT 08931 KELVIN ANNE IC PX 1/> 6 N FAMILY JADYN AREAS CHIROPRAC EACH 15 T MIN EXERCISES APPL 82948 KELVIN DAYANA MODALITY 6 N FAMILY JADYN 1/> AREAS CHIROPRAC ELEC T STIMJ UNATTENDE D APPL 43880 STEPHYADE DAYANA MODALITY 6 N FAMILY JADYN 1/> AREAS CHIROPRAC TRACTION T MECHANICA L CHIROPRAC 98798 KELVIN ANNE TIC 6 N FAMILY JADYN MANIPULAT CHIROPRAC KIM TX T SPINAL 3-4 REGIONS CHIROPRAC 22479 KELVIN DAYANA TIC 6 N FAMILY JADYN MANIPULAT CHIROPRAC KIM TX T SPINAL 3-4 REGIONS INITIAL 93384 [facility] IN[facility] 5 PHYSICIAN CONSULT S GROUP NEW/ESTAB PT 40 MIN INCISION 58655 [facility] & 5 PHYSICIAN DRAINAGE S [...] S INC L STERILE PACKET EACH HOLA 76305 [facility] POST-VOID 5 LYDIA HARLEY ING ADULT & RESIDUAL PED URINE&/BL ADDER CAP CYSTO 97468 [facility] CALIBRATI [facility] SOUZA ON DILAT ADULT & URTL PED STRIX/JB NOSIS HOLA 04903 [facility] POST-VOID 5 LYDIA HARLEY ING ADULT & RESIDUAL PED URINE&/BL ADDER CAP COMPLEX 18378 [facility] UROFLOMET 5 [facility] SOUZA RY ADULT & PED HOLA 57093 [facility] POST-VOID 5 [facility] [place] SOUZA ING ADULT & RESIDUAL PED URINE&/BL ADDER CAP ELECTROEN 14449 [facility] CEPHALOGR 5 N N AM W/REC COMMUNTIY COMMUNTIY AWAKE&GINA HOSPITA HOSPITA WSY ELECTROEN 65727 [facility] CEPHALOGR 5 N AM W/REC NEUROLOGY AWAKE&ASL EEP MRI BRAIN 21192 [facility] BRAIN 5 N N STEM W/O COMMUNTIY COMMUNTIY CONTR[place] [address] [facility] THIAMINE- 5 N N VITAMIN COMMUNTIY COMMUNTIY B-1 HOSPITA HOSPITA COMPREHEN 98596 [facility] SIVE 5 N N METABOLIC COMMUNTIY COMMUN[place] [address] [facility] FOLIC 5 N N ACID COMMUNTIY COMMUNTI[place] [address] [facility] THYROID 5 N N STIMULATI COMMUNTIY COMMUNTIY NG [place] [address] [facility] PYRIDOXAL 5 N N COMMUNTIY COMMUNTIY PHOSPHATE HOSPITA HOSPITA COLLECTIO 44254 [facility] N VENOUS 5 N N BLOOD COMMUNTIY COMMUNTIY VENIPUNCT HOSPITA HOSPITA URE CYANOCOBA 53033 [facility] [place] 5 N N VITAMIN COMMUNTIY COMMUNTIY B-12 HOSPITA HOSPITA 25 44032 [facility] HYDROXY 5 N N INCLUDES COMMUNTIY COMMUNTIY FRACTIONS HOSPITA HOSPITA IF PERFORMED COLLECTIO 36226 [facility] N VENOUS 5 N N BLOOD COMMUNTIY COMMUNTIY VENIPUNCT HOSPITA HOSPITA URE DRUG SCR G0434 COMBINED COMBINED NOT 5 PHYSICIAN PHYSICIAN CHROMATOG S LARRY Arechiga [place] DEVENDRA; ANY NUMBER PT ENC MRI 78411 [facility] JOSEPHINE SPINAL 4 MEDICAL H[facility] CANAL IMAGING LUMBAR ASS W/O CONTRAST MATERIAL RADEX 23725 [facility] SPINE 4 [place] LUMBOSACR ORTHOPAED AL 2/3 [facility]CS PLC VIEWS HEPATITIS 84190 [facility] C 4 Y Y ANTIBODY [facility] BLOOD 45032 [facility] COUNT 4 Y Y COMPLETE [facility] AUTO&AUTO DIFRNTL WBC RHEUMATOI 04419 [facility] D FACTOR 4 Y Y QUANTITAT [facility] KIM C-REACTIV 27422 [facility] E PROTEIN 4 Y Y [facility] COLLECTIO 05587 [facility] N VENOUS 4 Y Y BLOOD [facility] VENIPUNCT URE URNLS DIP 67141 [facility] 4 Y Y STICK/TAB [facility] LET RGNT AUTO W/O MICROSCOP Y COMPREHEN 28183 [facility] SIVE 4 Y Y METABOLIC [facility] [place] [address] [facility] MAGNESIUM 4 Y Y HOSPITAL HOSPITAL RADEX 52226 [facility] WRIST 2 4 Y Y VIEWS [facility] RADEX 14875 [facility] FOOT 4 Y Y COMPLETE [facility] MINIMUM 3 VIEWS CYCLIC 17757 [facility] CITRULLIN 4 Y Y ATED [facility] [place] [address] [facility] HEPATITIS 4 Y Y B [facility] SURFACE ANTIGEN RADEX 48250 [facility] HAND 2 4 [place] [address] [facility] PHOSPHORU 4 Y Y S [facility] INORGANIC SEDIMENTA 05704 [facility] TION [facility] 4 Y Y RBC [facility] AUTOMATED OPHTH 34173 [facility] 4 GRE GRE XM&EVAL COMPRHNSV ESTAB PT 1/> RADEX 54652 [facility] DAYANA SPINE 4 N FAMILY JADYN CERVICAL CHIROPRAC 2 OR 3 T VIEWS CHIROPRAC 69465 [facility] DAYANA TIC 4 N FAMILY JADYN MANIPULAT CHIROPRAC KIM TX T SPINAL 3-4 REGIONS THERAPEUT 47449 [facility] IC PX 1/> 4 N FAMILY N FAMILY AREAS CHIROPRAC CHIROPRAC EACH 15 T T MIN EXERCISES APPL 91236 [facility] MODALITY 4 N FAMILY JADYN 1/> AREAS CHIROPRAC TRACTION T MECHANICA L APPL 53956 [facility] MODALITY 4 N FAMILY N FAMILY 1/> AREAS CHIROPRAC CHIROPRAC ELEC T T STIMJ UNATTENDE D RADEX 95246 [facility] SPINE 4 N FAMILY JADYN LUMBOSACR CHIROPRAC AL 2/3 T VIEWS HEPATITIS 35737 [facility] C 4 BHARATI BHARATI ANTIBODY HOLDINGS HOLDINGS RADEX 62877 [facility] HAND 4 [place] MINIMUM 3 ORTHOPAED VIEWS ICS PLC RADIOLOGI 34466 [facility] C EXAM 4 MEDICAL HENRIK CHEST 2 IMAGING VIEWS ASS FRONTAL&L ATERAL Encounters Encounter Start End Date Code Location Performer Type Date OFFICE 49928 DANYEL MONTAÑO OUTPATIEN 7 7 T VISIT 15 MINUTES OFFICE 05734 [facility]MENTS OUTPATIEN 7 7 T VISIT 15 MINUTES OFFICE 96045 STEPHYADE BRICE OUTPATIEN 6 6 N T VISIT NEUROLOGY 10 MINUTES OFFICE 06679 KELVIN ANNE OUTPATIEN 6 6 N FAMILY JADYN T VISIT CHIROPRAC 10 T MINUTES OFFICE 01291 [facility] P[facility] CLEMENTS PAD OUTPATIEN 5 5 T VISIT 15 MINUTES EMERGENCY 40256 ADELA ZUÑIGA [facility] [facility] DEPT 5 5 PHYSICIAN VISIT S, PLLC HIGH SEVERITY& THREAT FUNCJ OFFICE 97512 [facility] OUTPATIEN 5 5 LYDIA HARLEY T VISIT ADULT & 15 PED MINUTES OFFICE 99772 [facility] OUTPATIEN 5 5 [facility] HAR[facility] T VISIT ADULT & 15 PED MINUTES OFFICE 11296 [facility] CONSULTAT 5 5 [facility] HARLEY ION ADULT & NEW/ESTAB PED PATIENT 60 MIN OFFICE 18799 [facility] OUTPATIEN 5 5 N T VISIT NEUROLOGY 15 MINUTES OFFICE 93520 [facility] OUTPATIEN 5 5 [place] T VISIT ORTHOPAED 10 [facility] MINUTES HOSPITAL [facility] OFF[facility] 15700 JAYLON IYER OUTPATIEN 5 5 ESTEFANIA ESTEFANIA T VISIT 15 MINUTES OFFICE 15001 [facility] OUTPATIEN 4 4 [place] T VISIT ORTHOPAED 15 [facility] MINUTES OFFICE 81613 [facility] OUTPATIEN 4 4 [place] T VISIT ORTHOPAED 15 [facility] MINUTES [facility]OSPITAL [facility] - 4 4 MEM H[facility] OUTPATIEN INC T OFFICE 53938 JAYLON IYER OUTPATIEN 4 4 ESTEFANIA ESTEFANIA T VISIT 15 MINUTES OFFICE 12925 [facility] OUTPATIEN 4 4 [place] T VISIT ORTHOPAED 15 [facility] MINUTES [facility]OS[facility] - 4 4 [facility] [place] OFF[facility] 87619 [facility] OUTPATIEN 4 4 Y T VISIT HOSPITAL 10 MINUTES OFFICE 12215 [place] SUZANNE OUTPATIEN 4 4 MEDICAL DEBRA T NEW 30 SERV MINUTES FOUNDATIO OFFICE 45148 [place] VIJAYARI CONSULTAT 4 4 MEDICAL MAR ION SERV NEW/ESTAB FOUNDATIO PATIENT N 80 MIN OFFICE 08983 YOHANA WALLACE OUTPATIEN 4 4 FOOT & N SAAD T VISIT ANKLE CE 15 MINUTES OFFICE 31791 KELVIN ANNE OUTPATIEN 4 4 N FAMILY JADYN T VISIT CHIROPRAC 10 T MINUTES OFFICE 48582 [facility] OUTPATIEN 4 4 [place] T NEW 30 ORTHOPAED MINUTES ICS PLC OFFICE 32196 JAYLON IYER OUTPATIEN 4 4 ESTEFANIA ESTEFANIA T VISIT 15 MINUTES
--- OUTSIDE RECORDS SUMMARY | 2017-06-03 20:21 | External Medical Summary Rpt ---
Demographics Preferred Language Malay Marital Status Unknown Synagogue Affiliation Unknown Race Unknown Ethnic Group Unknown Author Author , ESVIN MCALLISTER Address Unknown Phone [email or web address] Immunization Name Date Rout CVX Reac Dose Comm Prov Is Faci e tion ent ider Refu lity Give sed n Td 03-1 9 999 Hist H149 No H149 (lexx 0-19 ori lt), 97 al Info adso rmat rbed ion - Sour ce Unsp ecif ied
== END 2017-06-02 21:00 | disposition home or self-care (01) ==
LOC: ER 19:41
PROVIDERS: Emergency Medicine
PROC: 2Y41X5Z Packing of Nasal Region using Packing Material (ICD-10-PCS; principal; 2017-06-02)
DX: R04.0 Epistaxis (principal)